=== PATIENT | male | born 1945 | race Caucasian/White ===

== ENCOUNTER 2016-12-09 14:01 | Inpatient (IN) | payer OTHER ==
[~2016-12-09] VITALS: Ht 175.3 cm; Wt 94.1 kg
[~2016-12-09 14:01] MED LIST: ALBU0.08 INH; CALC500C70 PO; CARB25TA12 PO; CHOL20007 PO; CITA10TA4 PO; DOCU100C31 PO; FINA5TAB PO; FLEC50TA20 PO; LSNP/30 PO; PRD10 PO; PRD75 PO; PRED10TA PO; TPRSR/100 PO; ZOLP5TAB PO
[2016-12-09] MEDS ORDERED: TAMS0.4C38 PO (14:38)
[2016-12-09] MEDS ORDERED: ALUMSUS2 PO (14:38)
[2016-12-09] MEDS ORDERED: POLY335019 PO (14:38)
--- NOTE | 2016-12-09 15:11 | EMERGENCY ROOM VISIT NOTE ---
History Report prepared by Lesa: Ijeoma Lange Under the Supervision of: Dr. Lester Augustin M.D. First contact with patient: 15:01 Chief Complaint: WEAKNESS Stated Complaint: WEAKNESS Nursing Triage Summary: Patient arrives via ALS from home with complaints of weakness. Patient is from home with . EMS reports temp. 98.6F, PMH of a.fib, PE, hydrocephalus. Patient denies pain, weakness noted when changing patient into gown. History of Present Illness The patient is a 71 year old male who presents to the Emergency Room with complaints of worsened weakness this morning. Per patient's family the patient is typically able to stand up on his own but he was unable to stand this morning. He was also minimally responsive and would fall back to sleep quickly. The patient had some cold-symptoms and a cough recently. His cold symptoms have improved but he does have an occasional cough. Past medical history includes hydrocephalus. The patient has been dealing with this for the past 10 years and had a shunt 1.5 years ago which they do not think was successful. Source of History: family Onset: this morning Position: other (global) Quality: other (weakness) Timing: worsening Associated Symptoms: + cough Review of Systems See HPI for pertinent positives & negatives. A total of 10 systems reviewed and were otherwise negative. 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 (4) Pulmonary emboli (5) SIRS (systemic inflammatory response syndrome) Family History Cancer Hypertension Social History Smoking Status: Never Smoker Drug Use: none Marital Status: Housing Status: lives with family Occupation Status: retired Current/Historical Medications Scheduled Calcium/Vitamin D (Os-Pankaj 500 Plus D), 1 TAB PO DAILY Carbidopa/Levodopa (Sinemet 25MG/100MG), 1 TAB PO TID Cholecalciferol (Vitamin D3), 2,000 UNIT PO HS Citalopram Hydrobromide (Citalopram Hydrobromide), 10 MG PO DAILY Dabigatran Elexilate (Pradaxa), 150 MG PO BID Docusate Sodium (Docusate Sodium), 1 CAP PO BID Finasteride (Proscar), 5 MG PO QAM Flecainide (Tambocor), 50 MG PO Q12 Lisinopril (Zestril), 30 MG PO DAILY Metoprolol Succinate (Metoprolol Succinate ER), 100 MG PO DAILY Prednisone Tab (Prednisone), 10 MG PO DAILY Tamsulosin Hcl (Flomax), 0.4 MG PO DAILY Scheduled PRN Polyethylene Glycol 3350 (Miralax), 17 GM PO DAILY PRN for Constipation Miscellaneous Medications Alum & Mag Hydrox-Simethicone (Maalox Max Susp), 30 ML PO Allergies Coded Allergies: No Known Allergies (Unverified , 12/09/16) Physical Exam Vital Signs Date Time Temp Pulse Resp B/P Pulse Ox O2 Delivery O2 Flow Rate FiO2 12/09/16 18:31 74 18 161/74 96 Room Air 12/09/16 17:15 59 20 144/72 99 Nebulizer 6.0 12/09/16 16:20 52 18 93 Room Air 12/09/16 16:08 52 20 123/71 94 60 121/71 12/09/16 16:08 94 Room Air 12/09/16 16:06 52 20 140/68 94 Room Air 12/09/16 14:52 54 12/09/16 14:34 53 18 143/60 93 Room Air 12/09/16 14:11 36.9 61 16 129/63 94 Room Air 12/09/16 14:11 94 Room Air Physical Exam GENERAL: Patient is a healthy-appearing well-nourished 71 year old male HEAD: Normocephalic atraumatic EYES: Ocular movements intact pupils equal and react to light OROPHARYNX mucous membranes are moist no exudates present no erythema or edema present NECK: Supple no nuchal rigidity CHEST: Good equal expansion LUNGS: Wheezing on the right to auscultation. CARDIAC: Normal S1 and S2 ABDOMEN: Soft nontender no guarding BACK: No CVA tenderness EXTREMITIES: No pain upon palpation normal muscle strength in all groups no clubbing cyanosis or edema NEURO: Patient is not following commands and does not know where he is. Cranial Nerves 2-12 grossly intact Medical Decision & Procedures ER Provider Diagnostic Interpretation: Radiology results as stated below per my review and radiologist interpretation: CHEST ONE VIEW PORTABLE CLINICAL HISTORY: Altered mental status. COMPARISON STUDY: Chest CT September 06, 2016. FINDINGS: A catheter overlying the right chest wall and upper abdomen is again noted. Cardiomegaly is unchanged. There is no evidence of pulmonary edema. There is no consolidation to suggest pneumonia. No pneumothorax or pleural effusion is present. Mild left basilar opacity likely reflects atelectasis and epicardial fat pad. IMPRESSION: 1. No acute findings. 2. Stable cardiomegaly without evidence of pulmonary edema. 3. Hazy left lower lung opacity likely reflects atelectasis and epicardial fat pad. Electronically signed by: Yvon Christy M.D. 12/09/2016 3:39 PM Dictated Date/Time: 12/09/2016 3:[address] ANGIOGRAM OF THE CHEST CLINICAL HISTORY: Wheezing. Dyspnea. COMPARISON STUDY: Multiple prior chest CT scans, most recently dated 09/06/2016. TECHNIQUE: Following the IV administration of 110 cc of Optiray 320, CT angiogram of the chest was performed from the upper abdomen to the thoracic inlet utilizing the pulmonary embolus protocol. Images are reviewed in the axial, sagittal, and coronal planes. 3-D MIPS images are created and assessed. IV contrast was administered without complication. The examination is significantly degraded by motion artifact as well as by streak artifact from the patient's arms which could not be elevated above the chest. CT DOSE: 1319.48 mGy.cm FINDINGS: Thyroid: Imaged portions of the thyroid gland are normal in size and attenuation. Thoracic aorta: There is mild atherosclerotic calcification of the thoracic aorta, which is normal in caliber and demonstrates standard 3-vessel arch anatomy. No dissection is seen. Pulmonary vasculature: The pulmonary trunk is normal in caliber. There are no central filling defects identified within the main or lobar pulmonary arteries to suggest pulmonary embolus. Evaluation of the peripheral vessels is severely degraded by streak and motion artifact. Heart: The heart heart is mildly enlarged and there is trace pericardial effusion. The coronary arteries are densely calcified. Lungs and pleural spaces: Evaluation of the lung parenchyma is degraded by motion artifact. There is bibasilar atelectasis. No airspace consolidation is identified typical for pneumonia and there is no pleural effusion. Biapical scarring is observed. The trachea and central airways are clear. Mediastinum: There is no mediastinal lymphadenopathy. Amrie: Clear. Axillae: There is no axillary lymphadenopathy. Upper abdomen: A ventriculostomy catheter is noted in the right upper quadrant. There is a small to moderate hiatal hernia. Cortical atrophy is noted in the partially visualized kidneys. Skeletal structures: The skeletal structures are osteopenic. No lytic or blastic bony lesions are seen. There are healed right-sided rib fractures. Arthritic changes are seen in the shoulders. Degenerative change and scoliosis are noted in the thoracic spine. A mild superior endplate compression deformity is noted in L1. IMPRESSION: 1. Significantly streak and motion artifact degraded examination. 2. There are no filling defects identified to indicate central pulmonary embolus within the main or lobar pulmonary branches. Evaluation of the peripheral vessels is markedly degraded by streak and motion artifact. 3. There is no airspace consolidation or pleural effusion. 4. Cardiomegaly. 5. Additional changes as above. Electronically signed by: Stew Philip M.D. 12/09/2016 6:28 PM Dictated Date/Time: 12/09/2016 6:[address] SCAN OF THE BRAIN WITHOUT IV CONTRAST CLINICAL HISTORY: Change in mental status. COMPARISON STUDY: Multiple prior CT scans of the brain, most recently dated 04/26/2016. TECHNIQUE: Unenhanced axial CT scan of the brain is performed from the vertex to the skull base. FINDINGS: Brain parenchyma: There is a right occipital approach ventriculostomy catheter. The tip terminates in the body of the left lateral ventricle. Ventricular caliber has not significantly changed from 04/26/2016. There is no transependymal flow of CSF. There are age-related involutional changes noting mild subcortical and periventricular microangiopathic change. There is no hemorrhage, mass effect, or evidence of acute territorial ischemia by CT criteria. Chahal-white matter is preserved. No extra-axial fluid collection is seen. Ventricles, sulci, cisterns: Prominent secondary to involutional change, with severe enlargement of the lateral and third ventricles. See above. Intracranial vasculature: There is atherosclerotic calcification of the cavernous carotid and vertebral arteries. Calvarium: There is a right occipital jessica hole. The calvarium is otherwise intact. Sinuses and mastoids: The visualized paranasal sinuses are clear. The mastoid air cells are well pneumatized. Orbits: The bony orbits are grossly intact. IMPRESSION: 1. There is no hemorrhage, mass effect, or evidence of acute territorial ischemia by CT criteria. 2. A right occipital approach ventriculostomy catheter is unchanged in position. The caliber of the ventricles has not significantly changed from 04/26/2016. Electronically signed by: Stew Philip M.D. 12/09/2016 6:21 PM Dictated Date/Time: 12/09/2016 6:18 PM Laboratory Results 12/09/16 14:20 Red Blood Count 5.17, Mean Corpuscular Volume 85.7, Mean Corpuscular Hemoglobin 30.2, Mean Corpuscular Hemoglobin Concent 35.2, Mean Platelet Volume 10.8, Neutrophils (%) (Auto) 49.9, Lymphocytes (%) (Auto) 38.5, Monocytes (%) (Auto) 10.0, Eosinophils (%) (Auto) 0.4, Basophils (%) (Auto) 0.8, Neutrophils # (Auto ) 3.63, Lymphocytes # (Auto) 2.81, Monocytes # (Auto) 0.73, Eosinophils # (Auto ) 0.03, Basophils # (Auto) 0.06 12/09/16 14:20 Test 12/09/16 14:20 12/09/16 14:28 12/09/16 16:04 12/09/16 16:15 White Blood Count 7.29 K/uL (4.8-10.8) Red Blood Count 5.17 M/uL (4.7-6.1) Hemoglobin 15.6 g/dL (14.0-18.0) Hematocrit 44.3 % (42-52) Mean Corpuscular Volume 85.7 fL (80-100) Mean Corpuscular Hemoglobin 30.2 pg (25-34) Mean Corpuscular Hemoglobin Concent 35.2 g/dl (32-36) Platelet Count 155 K/uL (130-400) Mean Platelet Volume 10.8 fL (7.4-10.4) Neutrophils (%) (Auto) 49.9 % Lymphocytes (%) (Auto) 38.5 % Monocytes (%) (Auto) 10.0 % Eosinophils (%) (Auto) 0.4 % Basophils (%) (Auto) 0.8 % Neutrophils # (Auto) 3.63 K/uL (1.4-6.5) Lymphocytes # (Auto) 2.81 K/uL (1.2-3.4) Monocytes # (Auto) 0.73 K/uL (0.11-0.59) Eosinophils # (Auto) 0.03 K/uL (0-0.5) Basophils # (Auto) 0.06 K/uL (0-0.2) RDW Standard Deviation 43.3 fL (36.4-46.3) RDW Coefficient of Variation 13.9 % (11.5-14.5) Immature Granulocyte % (Auto) 0.4 % Immature Granulocyte # (Auto) 0.03 K/uL (0.00-0.02) Anion Gap 10.0 mmol/L (3-11) Est Creatinine Clear Calc Drug Dose 59.0 ml/min Estimated GFR () 63.6 Estimated GFR (Non- 54.9 BUN/Creatinine Ratio 16.2 (10-20) Calcium Level 8.1 mg/dl (8.5-10.1) Total Bilirubin 0.7 mg/dl (0.2-1) Direct Bilirubin 0.2 mg/dl (0-0.2) Aspartate Amino Transf (AST/SGOT) 12 U/L (15-37) Alanine Aminotransferase (ALT/SGPT) 17 U/L (12-78) Alkaline Phosphatase 60 U/L (45-117) Total Creatine Kinase 67 U/L (39-308) Creatine Kinase MB 1.3 ng/ml (0.5-3.6) Creatine Kinase MB Ratio 1.9 (0-3.0) Troponin I < 0.015 ng/ml (0-0.045) Total Protein 5.9 gm/dl (6.4-8.2) Albumin 3.3 gm/dl (3.4-5.0) Thyroid Stimulating Hormone (TSH) 0.321 uIu/ml (0.300-4.500) Bedside Lactic Acid Venous 0.94 mmol/L (0.90-1.70) Bedside Glucose 85 mg/dl (70-99) Influenza Type A (RT-PCR) POS for Influ A (NEG) Influenza Type B (RT-PCR) Neg for Influ B (NEG) Test 12/09/16 18:30 Urine Color YELLOW Urine Appearance CLEAR (CLEAR) Urine pH 5.5 (4.5-7.5) Urine Specific Vale 1.037 (1.000-1.030) Urine Protein NEG (NEG) Urine Glucose (UA) NEG (NEG) Urine Ketones NEG (NEG) Urine Occult Blood TRACE (NEG) Urine Nitrite NEG (NEG) Urine Bilirubin NEG (NEG) Urine Urobilinogen NEG (NEG) Urine Leukocyte Esterase NEG (NEG) Urine WBC (Auto) 0 /hpf (0-5) Urine RBC (Auto) 10-30 /hpf (0-4) Urine Hyaline Casts (Auto) 0 /lpf (0-5) Urine Epithelial Cells (Auto) 0-5 /lpf (0-5) Urine Bacteria (Auto) NEG (NEG) Labs reviewed by ED physician. Medications Administered Medications (Trade) Dose Ordered Sig/Chetan Route Start Time Stop Time Status Last Admin Dose Admin Sodium Chloride (Nss 500ml) 500 ml @ 999 mls/hr Q31M STAT IV 12/09/16 15:18 12/09/16 15:48 DC 12/09/16 16:03 999 MLS/HR Oseltamivir Phosphate (Tamiflu Cap) 75 mg NOW STAT PO 12/09/16 17:44 12/09/16 17:45 DC 12/09/16 17:55 75 MG ECG Indication: weakness Rate (beats per minute): 55 Rhythm: sinus bradycardia Findings: no acute ischemic change, no ectopy ED Course 1504: Past medical records reviewed. The patient was evaluated in room B8. A complete history and physical examination was performed. 1515: Ordered DuoNeb 12 ml INH, NSS 500 ml @ 999 mls/hr IV. 1744: Ordered Tamiflu Cap 75 mg PO. 1827: Upon reexamination the patient is resting comfortably. I discussed results and treatment plan with the patient and his son. They verbalized agreement and understanding. 2057: I discussed the case with Dr. Hope [place] [facility] [place] The patient will be evaluated for further management. Medical Decision Differential diagnosis: Etiologies such as metabolic, infection, hypo/hyperglycemia, electrolyte abnormalities, cardiac sources, intracerebral event, toxicologic, neurologic, as well as others were entertained. This is a 71-year-old male who presents emergency department with altered mental status. The patient was given normal saline bolus in the emergency department along with an hour-long breathing treatment. The patient is not sure of where he is. He is positive for flu. The patient does have a history of CLL as well as a shunt placed. CAT scan of the head is unchanged. He has a history of pulmonary embolus however is on dabigatran. CT of the chest does not show any evidence of PE. The patient was started on Tamiflu and discussed with the hospitalist service due to his altered mental status. Both patient and family were in agreement with the treatment plan. Consults Time Called: 1827 Consulting Physician: Dr. Jayy Lopez [facility] [place] Returned Call: [phone] I discussed the case with him. The patient will be evaluated for further management. Impression Primary Impression: Altered mental status Additional Impression: Influenza A Scribe Attestation The scribe's documentation has been prepared under my direction and personally reviewed by me in its entirety. I confirm that the note above accurately reflects all work, treatment, procedures, and medical decision making performed by me. Departure Information Dispostion Being Evaluated By Hospitalist Referrals Carlos Brooks D.O.Int.Med. (PCP) Patient Instructions My [facility] Problem Qualifiers Primary Impression: Altered mental status Altered mental status type: disorientation Qualified Codes: R41.0 - Disorientation, unspecified
[2016-12-09] MEDS ORDERED: ALBUT/IPRATROP 3MG/0.5MG NEB 3 ML VIAL INH ONE (15:15)
[2016-12-09] MEDS ORDERED: SODIUM CHLORIDE 0.9% 500ML 500 ML IV STA (15:18)
[2016-12-09 15:28] LABS: BASO % 0.8 %; BASO ABS # 0.06 K/uL (0-0.2); COMPLETE YES; EOS % 0.4 %; HEMATOCRIT 44.3 % (42-52); IG% 0.4 %; LYMPH % 38.5 %; LYMPH ABS # 2.81 K/uL (1.2-3.4); MEAN CELL VOLUME 85.7 fL (80-100); MEAN CORPUSCULAR HEMOGLOBIN 30.2 pg (25-34); MEAN CORPUSCULAR HGB CONC 35.2 g/dl (32-36); MEAN PLATELET VOLUME 10.8 fL (7.4-10.4); NEUT % 49.9 %; PLATELET COUNT 155 K/uL (130-400); RED BLOOD COUNT 5.17 M/uL (4.7-6.1); WHITE BLOOD COUNT 7.29 K/uL (4.8-10.8)
[2016-12-09 15:35] LABS: ALT/SGPT 17 U/L (12-78); AST/SGOT 12 U/L (15-37); BLOOD UREA NITROGEN 21 mg/dl (7-18); BUN/CREATININE RATIO 16.2 (10-20); CALCIUM 8.1 mg/dl (8.5-10.1); CARBON DIOXIDE 25 mmol/L (21-32); CHLORIDE 106 mmol/L (98-107); GLUCOSE 86 mg/dl (70-99); POTASSIUM 4.1 mmol/L (3.5-5.1); SODIUM 141 mmol/L (136-145)
--- NOTE | 2016-12-09 15:40 | DIAGNOSTIC IMAGING REPORT ---
CHEST ONE VIEW PORTABLE CLINICAL HISTORY: Altered mental status. COMPARISON STUDY: Chest CT September 06, 2016. FINDINGS: A catheter overlying the right chest wall and upper abdomen is again noted. Cardiomegaly is unchanged. There is no evidence of pulmonary edema. There is no consolidation to suggest pneumonia. No pneumothorax or pleural effusion is present. Mild left basilar opacity likely reflects atelectasis and epicardial fat pad. IMPRESSION: 1. No acute findings. 2. Stable cardiomegaly without evidence of pulmonary edema. 3. Hazy left lower lung opacity likely reflects atelectasis and epicardial fat pad. Electronically signed by: Yvon Christy M.D. 12/09/2016 3:39 PM Dictated Date/Time: 12/09/2016 3:37 PM
[2016-12-09 15:46] LABS: ALKALINE PHOSPHATASE 60 U/L (45-117); CKMB/CK RATIO 1.9 (0-3.0); THYROID STIMULATING HORMONE 0.321 uIu/ml (0.300-4.500)
[2016-12-09] MEDS ORDERED: OPTIRAY 320 IV PRN (16:15)
[2016-12-09 16:20] VITALS: PULSE 52; O2SAT 93
[2016-12-09 17:42] LABS: INFLUENZA B PCR Neg for Influ B (NEG)
[2016-12-09 17:43] LABS: INFLUENZA A PCR POS for Influ A (NEG)
[2016-12-09] MEDS ORDERED: OSELTAMIVIR PHOSPHATE 75 MG CAP PO STA (17:44)
--- NOTE | 2016-12-09 18:22 | DIAGNOSTIC IMAGING REPORT ---
CT SCAN OF THE BRAIN WITHOUT IV CONTRAST CLINICAL HISTORY: Change in mental status. COMPARISON STUDY: Multiple prior CT scans of the brain, most recently dated 04/26/2016. TECHNIQUE: Unenhanced axial CT scan of the brain is performed from the vertex to the skull base. FINDINGS: Brain parenchyma: There is a right occipital approach ventriculostomy catheter. The tip terminates in the body of the left lateral ventricle. Ventricular caliber has not significantly changed from 04/26/2016. There is no transependymal flow of CSF. There are age-related involutional changes noting mild subcortical and periventricular microangiopathic change. There is no hemorrhage, mass effect, or evidence of acute territorial ischemia by CT criteria. Chahal-white matter is preserved. No extra-axial fluid collection is seen. Ventricles, sulci, cisterns: Prominent secondary to involutional change, with severe enlargement of the lateral and third ventricles. See above. Intracranial vasculature: There is atherosclerotic calcification of the cavernous carotid and vertebral arteries. Calvarium: There is a right occipital jessica hole. The calvarium is otherwise intact. Sinuses and mastoids: The visualized paranasal sinuses are clear. The mastoid air cells are well pneumatized. Orbits: The bony orbits are grossly intact. IMPRESSION: 1. There is no hemorrhage, mass effect, or evidence of acute territorial ischemia by CT criteria. 2. A right occipital approach ventriculostomy catheter is unchanged in position. The caliber of the ventricles has not significantly changed from 04/26/2016. Electronically signed by: Stew Philip M.D. 12/09/2016 6:21 PM Dictated Date/Time: 12/09/2016 6:18 PM
--- NOTE | 2016-12-09 18:30 | DIAGNOSTIC IMAGING REPORT ---
CT ANGIOGRAM OF THE CHEST CLINICAL HISTORY: Wheezing. Dyspnea. COMPARISON STUDY: Multiple prior chest CT scans, most recently dated 09/06/2016. TECHNIQUE: Following the IV administration of 110 cc of Optiray 320, CT angiogram of the chest was performed from the upper abdomen to the thoracic inlet utilizing the pulmonary embolus protocol. Images are reviewed in the axial, sagittal, and coronal planes. 3-D MIPS images are created and assessed. IV contrast was administered without complication. The examination is significantly degraded by motion artifact as well as by streak artifact from the patient's arms which could not be elevated above the chest. CT DOSE: 1319.48 mGy.cm FINDINGS: Thyroid: Imaged portions of the thyroid gland are normal in size and attenuation. Thoracic aorta: There is mild atherosclerotic calcification of the thoracic aorta, which is normal in caliber and demonstrates standard 3-vessel arch anatomy. No dissection is seen. Pulmonary vasculature: The pulmonary trunk is normal in caliber. There are no central filling defects identified within the main or lobar pulmonary arteries to suggest pulmonary embolus. Evaluation of the peripheral vessels is severely degraded by streak and motion artifact. Heart: The heart heart is mildly enlarged and there is trace pericardial effusion. The coronary arteries are densely calcified. Lungs and pleural spaces: Evaluation of the lung parenchyma is degraded by motion artifact. There is bibasilar atelectasis. No airspace consolidation is identified typical for pneumonia and there is no pleural effusion. Biapical scarring is observed. The trachea and central airways are clear. Mediastinum: There is no mediastinal lymphadenopathy. Marie: Clear. Axillae: There is no axillary lymphadenopathy. Upper abdomen: A ventriculostomy catheter is noted in the right upper quadrant. There is a small to moderate hiatal hernia. Cortical atrophy is noted in the partially visualized kidneys. Skeletal structures: The skeletal structures are osteopenic. No lytic or blastic bony lesions are seen. There are healed right-sided rib fractures. Arthritic changes are seen in the shoulders. Degenerative change and scoliosis are noted in the thoracic spine. A mild superior endplate compression deformity is noted in L1. IMPRESSION: 1. Significantly streak and motion artifact degraded examination. 2. There are no filling defects identified to indicate central pulmonary embolus within the main or lobar pulmonary branches. Evaluation of the peripheral vessels is markedly degraded by streak and motion artifact. 3. There is no airspace consolidation or pleural effusion. 4. Cardiomegaly. 5. Additional changes as above. Electronically signed by: Stew Philip M.D. 12/09/2016 6:28 PM Dictated Date/Time: 12/09/2016 6:21 PM
[2016-12-09 18:57] LABS: URINE APPEARANCE CLEAR (CLEAR); URINE BILIRUBIN NEG (NEG); URINE COLOR YELLOW; URINE EPITHELIAL CELL AUTO 0-5 /lpf (0-5); URINE NITRITE NEG (NEG); URINE PH 5.5 (4.5-7.5); URINE SPECIFIC GRAVITY 1.037 (1.000-1.030); UROBILINOGEN NEG (NEG)
[2016-12-09 19:01] LABS: MANUAL MICROSCOPIC REQUIRED? NO; REVIEW REQ? NO
[2016-12-09] MEDS ORDERED: ONDANSETRON INJ 2 MG/ML 2 ML VIAL IV PRN (20:30)
[2016-12-09] MEDS ORDERED: ACETAMINOPHEN 325 MG TAB PO PRN (20:30)
[2016-12-09] MEDS ORDERED: ALUMINUM/MAGNESIUM/SIMETH (MAALOX MAX) 30 ML UDC PO PRN (20:30)
[2016-12-09] MEDS ORDERED: MAGNESIUM HYDROXIDE SUSP 30 ML UDC PO PRN (20:30)
[2016-12-09] MEDS ORDERED: IV FLUIDS COMPLETED PRN (20:45)
[2016-12-09] MEDS ORDERED: POLYETHYLENE (MIRALAX) 17 GM PACK PO PRN (21:45)
[2016-12-09] MEDS ORDERED: SODIUM CHLORIDE 0.9% 1000ML 1,000 ML IV SCH (22:15)
--- NOTE | 2016-12-09 22:35 | History and Physical ---
History & Physical Date & Time of Service: Dec 09, 2016 at 22:17 Chief Complaint: Influenza A, Weakness Primary Care Physician: Carlos Brooks D.O.Int.Med. History of Present Illness Source: family This is a 71 yo m with hydrocephalus, Afibb and dementia that is presenting to us with acute changes in his cognition and weakness. According to the son over a couple of days his father seems weaker than usual. This morning he was extremely weak and unable to even get out of bed. He has also increased confusion as per the son. He was evaluated in the ED and was found to be Influenza positive. The son would prefer admission because the patient is so weak and no one will be able to care for him at home. They have home health arranged but they have not been to the house as of yet. 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 Family History Cancer Hypertension Social History Smoking Status: Never Smoker Smokeless Tobacco Use: No Alcohol Use: none Drug Use: none Marital Status: Housing status: lives with family Occupational Status: retired Immunizations History of Influenza Vaccine: Yes History of Tetanus Vaccine?: Yes History of Pneumococcal: No History of Hepatitis B Vaccine: No Allergies Coded Allergies: No Known Allergies (Unverified , 12/09/16) Home Medications Scheduled Calcium/Vitamin D (Os-Pankaj 500 Plus D), 1 TAB PO DAILY Carbidopa/Levodopa (Sinemet 25MG/100MG), 1 TAB PO TID Cholecalciferol (Vitamin D3), 2,000 UNIT PO HS Citalopram Hydrobromide (Citalopram Hydrobromide), 10 MG PO DAILY Dabigatran Elexilate (Pradaxa), 150 MG PO BID Docusate Sodium (Docusate Sodium), 1 CAP PO BID Finasteride (Proscar), 5 MG PO QAM Flecainide (Tambocor), 50 MG PO Q12 Lisinopril (Zestril), 30 MG PO DAILY Metoprolol Succinate (Metoprolol Succinate ER), 100 MG PO DAILY Prednisone Tab (Prednisone), 10 MG PO DAILY Tamsulosin Hcl (Flomax), 0.4 MG PO DAILY Scheduled PRN Polyethylene Glycol 3350 (Miralax), 17 GM PO DAILY PRN for Constipation Miscellaneous Medications Alum & Mag Hydrox-Simethicone (Maalox Max Susp), 30 ML PO Review of Systems Unable to complete because of minimal responses from patient Physical Exam Vital Signs Date Time Temp Pulse Resp B/P Pulse Ox O2 Delivery O2 Flow Rate FiO2 12/09/16 21:26 67 20 163/91 94 Room Air 12/09/16 18:31 74 18 161/74 96 Room Air 12/09/16 17:15 59 20 144/72 99 Nebulizer 6.0 12/09/16 16:20 52 18 93 Room Air 12/09/16 16:08 52 20 123/71 94 60 121/71 12/09/16 16:08 94 Room Air 12/09/16 16:06 52 20 140/68 94 Room Air 12/09/16 14:52 54 12/09/16 14:34 53 18 143/60 93 Room Air 12/09/16 14:11 36.9 61 16 129/63 94 Room Air 12/09/16 14:11 94 Room Air General Appearance: WD/WN, no apparent distress Head: normocephalic, atraumatic Eyes: normal inspection ENT: normal ENT inspection Neck: supple Respiratory/Chest: lungs clear, normal breath sounds, no respiratory distress, no accessory muscle use Cardiovascular: no murmur, + bradycardia Abdomen/GI: normal bowel sounds, non tender, soft Back: normal inspection Extremities/Musculoskelatal: no calf tenderness, + pedal edema (+ 2 bilat LE) Neurologic/Psych: alert, normal mood/affect, oriented x 3 Skin: normal color, warm/dry, no rash Lymphatic: no adenopathy Diagnostics Laboratory Results Results Past 24 Hours Test 12/09/16 14:20 12/09/16 14:28 12/09/16 16:04 12/09/16 16:15 Range/Units White Blood Count 7.29 4.8-10.8 K/uL Red Blood Count 5.17 4.7-6.1 M/uL Hemoglobin 15.6 14.0-18.0 g/dL Hematocrit 44.3 42-52 % Mean Corpuscular Volume 85.7 80-100 fL Mean Corpuscular Hemoglobin 30.2 25-34 pg Mean Corpuscular Hemoglobin Concent 35.2 32-36 g/dl Platelet Count 155 130-400 K/uL Mean Platelet Volume 10.8 7.4-10.4 fL Neutrophils (%) (Auto) 49.9 % Lymphocytes (%) (Auto) 38.5 % Monocytes (%) (Auto) 10.0 % Eosinophils (%) (Auto) 0.4 % Basophils (%) (Auto) 0.8 % Neutrophils # (Auto) 3.63 1.4-6.5 K/uL Lymphocytes # (Auto) 2.81 1.2-3.4 K/uL Monocytes # (Auto) 0.73 0.11-0.59 K/uL Eosinophils # (Auto) 0.03 0-0.5 K/uL Basophils # (Auto) 0.06 0-0.2 K/uL RDW Standard Deviation 43.3 36.4-46.3 fL RDW Coefficient of Variation 13.9 11.5-14.5 % Immature Granulocyte % (Auto) 0.4 % Immature Granulocyte # (Auto) 0.03 0.00-0.02 K/uL Sodium Level 141 136-145 mmol/L Potassium Level 4.1 3.5-5.1 mmol/L Chloride Level 106 98-107 mmol/L Carbon Dioxide Level 25 21-32 mmol/L Anion Gap 10.0 3-11 mmol/L Blood Urea Nitrogen 21 7-18 mg/dl Creatinine 1.30 0.60-1.40 mg/dl Est Creatinine Clear Calc Drug Dose 59.0 ml/min Estimated GFR () 63.6 Estimated GFR (Non- 54.9 BUN/Creatinine Ratio 16.2 10-20 Random Glucose 86 70-99 mg/dl Calcium Level 8.1 8.5-10.1 mg/dl Total Bilirubin 0.7 0.2-1 mg/dl Direct Bilirubin 0.2 0-0.2 mg/dl Aspartate Amino Transf (AST/SGOT) 12 15-37 U/L Alanine Aminotransferase (ALT/SGPT) 17 12-78 U/L Alkaline Phosphatase 60 45-117 U/L Total Creatine Kinase 67 39-308 U/L Creatine Kinase MB 1.3 0.5-3.6 ng/ml Creatine Kinase MB Ratio 1.9 0-3.0 Troponin I < 0.015 0-0.045 ng/ml Total Protein 5.9 6.4-8.2 gm/dl Albumin 3.3 3.4-5.0 gm/dl Thyroid Stimulating Hormone (TSH) 0.321 0.300-4.500 uIu/ml Bedside Lactic Acid Venous 0.94 0.90-1.70 mmol/L Bedside Glucose 85 70-99 mg/dl Influenza Type A (RT-PCR) POS for Influ A NEG Influenza Type B (RT-PCR) Neg for Influ B NEG Test 12/09/16 18:30 Range/Units Urine Color YELLOW Urine Appearance CLEAR CLEAR Urine pH 5.5 4.5-7.5 Urine Specific [place] 1.037 1.000-1.030 Urine Protein NEG NEG Urine Glucose (UA) NEG NEG Urine Ketones NEG NEG Urine Occult Blood TRACE NEG Urine Nitrite NEG NEG Urine Bilirubin NEG NEG Urine Urobilinogen NEG NEG Urine Leukocyte Esterase NEG NEG Urine WBC (Auto) 0 0-5 /hpf Urine RBC (Auto) 10-30 0-4 /hpf Urine Hyaline Casts (Auto) 0 0-5 /lpf Urine Epithelial Cells (Auto) 0-5 0-5 /lpf Urine Bacteria (Auto) NEG NEG Diagnostic Radiology CT ANGIOGRAM OF THE CHEST CLINICAL HISTORY: Wheezing. Dyspnea. COMPARISON STUDY: Multiple prior chest CT scans, most recently dated 09/06/2016. TECHNIQUE: Following the IV administration of 110 cc of Optiray 320, CT angiogram of the chest was performed from the upper abdomen to the thoracic inlet utilizing the pulmonary embolus protocol. Images are reviewed in the axial, sagittal, and coronal planes. 3-D MIPS images are created and assessed. IV contrast was administered without complication. The examination is significantly degraded by motion artifact as well as by streak artifact from the patient's arms which could not be elevated above the chest. CT DOSE: 1319.48 mGy.cm FINDINGS: Thyroid: Imaged portions of the thyroid gland are normal in size and attenuation. Thoracic aorta: There is mild atherosclerotic calcification of the thoracic aorta, which is normal in caliber and demonstrates standard 3-vessel arch anatomy. No dissection is seen. Pulmonary vasculature: The pulmonary trunk is normal in caliber. There are no central filling defects identified within the main or lobar pulmonary arteries to suggest pulmonary embolus. Evaluation of the peripheral vessels is severely degraded by streak and motion artifact. Heart: The heart heart is mildly enlarged and there is trace pericardial effusion. The coronary arteries are densely calcified. Lungs and pleural spaces: Evaluation of the lung parenchyma is degraded by motion artifact. There is bibasilar atelectasis. No airspace consolidation is identified typical for pneumonia and there is no pleural effusion. Biapical scarring is observed. The trachea and central airways are clear. Mediastinum: There is no mediastinal lymphadenopathy. Marie: Clear. Axillae: There is no axillary lymphadenopathy. Upper abdomen: A ventriculostomy catheter is noted in the right upper quadrant. There is a small to moderate hiatal hernia. Cortical atrophy is noted in the partially visualized kidneys. Skeletal structures: The skeletal structures are osteopenic. No lytic or blastic bony lesions are seen. There are healed right-sided rib fractures. Arthritic changes are seen in the shoulders. Degenerative change and scoliosis are noted in the thoracic spine. A mild superior endplate compression deformity is noted in L1. IMPRESSION: 1. Significantly streak and motion artifact degraded examination. 2. There are no filling defects identified to indicate central pulmonary embolus within the main or lobar pulmonary branches. Evaluation of the peripheral vessels is markedly degraded by streak and motion artifact. 3. There is no airspace consolidation or pleural effusion. 4. Cardiomegaly. 5. Additional changes as above. [~ rep ct add3]] CHEST ONE VIEW PORTABLE CLINICAL HISTORY: Altered mental status. COMPARISON STUDY: Chest CT September 06, 2016. FINDINGS: A catheter overlying the right chest wall and upper abdomen is again noted. Cardiomegaly is unchanged. There is no evidence of pulmonary edema. There is no consolidation to suggest pneumonia. No pneumothorax or pleural effusion is present. Mild left basilar opacity likely reflects atelectasis and epicardial fat pad. IMPRESSION: 1. No acute findings. 2. Stable cardiomegaly without evidence of pulmonary edema. 3. Hazy left lower lung opacity likely reflects atelectasis and epicardial fat pad. CT SCAN OF THE BRAIN WITHOUT IV CONTRAST CLINICAL HISTORY: Change in mental status. COMPARISON STUDY: Multiple prior CT scans of the brain, most recently dated 04/26/2016. TECHNIQUE: Unenhanced axial CT scan of the brain is performed from the vertex to the skull base. FINDINGS: Brain parenchyma: There is a right occipital approach ventriculostomy catheter. The tip terminates in the body of the left lateral ventricle. Ventricular caliber has not significantly changed from 04/26/2016. There is no transependymal flow of CSF. There are age-related involutional changes noting mild subcortical and periventricular microangiopathic change. There is no hemorrhage, mass effect, or evidence of acute territorial ischemia by CT criteria. Ch[place]al-white matter is preserved. No extra-axial fluid collection is seen. Ventricles, sulci, cisterns: Prominent secondary to involutional change, with severe enlargement of the lateral and third ventricles. See above. Intracranial vasculature: There is atherosclerotic calcification of the cavernous carotid and vertebral arteries. Calvarium: There is a right occipital jessica hole. The calvarium is otherwise intact. Sinuses and mastoids: The visualized paranasal sinuses are clear. The mastoid air cells are well pneumatized. Orbits: The bony orbits are grossly intact. IMPRESSION: 1. There is no hemorrhage, mass effect, or evidence of acute territorial ischemia by CT criteria. 2. A right occipital approach ventriculostomy catheter is unchanged in position. The caliber of the ventricles has not significantly changed from 04/26/2016. EKG bpm 55 Qtc 438 NSR lexii no ischemic changes no ectopy Impression Assessment and Plan This is a 71 yo m that is suffering from influenza cause metabolic encephalopathy and weakness. Patient has a h/o CLL and hydrocephalus and a shunt was placed however not working at this time, unchanged CT head. Metabolic Encephalopathy secondary to influenza - Med surg - Tamiflu - NSS IVF - follow CBC and BMP Parkinson's - Continue Sinemet A fibb - continue pradaxa and flecanide BPH - continue tamsulosin and finasteride Depression - continue citalopram HTN - continue lisinopril DVT Prophylaxis on Pradaxa Full Code Level of Care Med/Surg Resuscitation Status FULL RESUSCITATION VTE Prophylaxis VTE Risk Assessment Done? Y/N: Yes Risk Level: Moderate Given or contraindicated: Other Anticoagulation Social Service Consult None Apply Note Total Time: Critical Care 30 - 74 minutes Additional Copies To Carlos Brooks D.O.Int.Med. Assessment and Plan Attending Addendum: I have physically seen and examined this patient, have directed their medical care, have supervised the medical residents activities, and agree with the H&P as noted above, with the following changes: NONE The patient is awake, well-developed and adequately nourished, alert and oriented 3, normocephalic and atraumatic, lying in bed and in no acute distress. HEENT--PERRL, EOMI, mucous membranes and oropharynx dry. Neck--supple, no JVD or bruits, thyroid normal, trachea midline, no adenopathy. Heart--normal S1 and S2, no extra beats, no murmurs, rubs or gallops. Lungs--clear bilaterally with good air movement, no respiratory distress, no accessory muscle use. Abdomen--normal bowel sounds and soft, nontender and nondistended, no hernias or masses, no organomegaly. Extremities--no cyanosis, clubbing or edema. There are good distal pulses b/l. Dermatologic--normal skin turgor, normal color, warm and dry, no abnormal lymph nodes, no rash. Neurologic--cranial nerves II through XII grossly intact, motor and sensory examination normal. Rheumatologic--normal range of motion, nontender, muscles and joints. Psychiatric--normal affect. Assessment and Plan: Influenza A--admitted to the medical floor, continue Tamiflu 75 mg by mouth twice a day. Hydrate with normal saline with 20 potassium 100 ML's per hour. Atrial fibrillation--continue flecainide 50 mg by mouth every 12 hours, metoprolol succinate ER 100 mg by mouth daily, and lisinopril 30 mg by mouth daily. Pulmonary emboli--continue Pradaxa 150 mg by mouth twice a day. CLL--on prednisone 10 mg by mouth daily, may need stress dose steroids but will hold for now. BPH--continue finasteride 5 mg by mouth every morning and tamsulosin 0.4 mg by mouth at bedtime. Parkinsonism--continue carbidopa/levodopa 25/100 one by mouth 3 times a day. Depression--continue citalopram 10 mg by mouth daily.
[2016-12-10] VITALS: BP_SYST 111; BP_SYST 182; BP_DIAS 60; BP_DIAS 75; PULSE 66; PULSE 67; TEMP 36.7; TEMP 37; O2SAT 92; O2SAT 96
[2016-12-10] MEDS: NSS + 20MEQ KCL 1000ML 1,000 ML IV SCH ×2 (01:41→12:12)
[2016-12-10 03:56] VITALS: Ht 175.3 cm; Wt 94.1 kg
[2016-12-10 06:58] LABS: HEMATOCRIT 43.2 % (42-52); MEAN CELL VOLUME 86.7 fL (80-100); MEAN CORPUSCULAR HEMOGLOBIN 30.5 pg (25-34); MEAN CORPUSCULAR HGB CONC 35.2 g/dl (32-36); MEAN PLATELET VOLUME 10.4 fL (7.4-10.4); PLATELET COUNT 146 K/uL (130-400); RED BLOOD COUNT 4.98 M/uL (4.7-6.1); WHITE BLOOD COUNT 6.47 K/uL (4.8-10.8)
[2016-12-10 07:18] VITALS: BP 155/74; PULSE 62; TEMP 37; O2SAT 94
[2016-12-10 07:28] LABS: BUN/CREATININE RATIO 14.5 (10-20); CALCIUM 8.1 mg/dl (8.5-10.1); CREATININE 1.2 mg/dl (0.60-1.40)
[2016-12-10] MEDS: CARBIDOPA/LEVODOPA 25/100MG TAB PO SCH ×3 (07:48→19:38)
[2016-12-10] MEDS: FLECAINIDE ACETATE 100 MG TAB PO SCH ×2 (07:49→19:38)
[2016-12-10] MEDS: DOCUSATE SODIUM 100 MG CAP PO SCH ×2 (07:49→19:38)
[2016-12-10] MEDS: FINASTERIDE 5 MG TAB PO SCH (07:49)
[2016-12-10] MEDS: DABIGATRAN ELEXILATE 75 MG CAP PO SCH ×2 (07:50→19:37)
[2016-12-10] MEDS: CITALOPRAM 20 MG TAB PO SCH (07:50)
[2016-12-10] MEDS: LISINOPRIL 10 MG TAB PO SCH (07:51)
[2016-12-10] MEDS: CALCIUM 600MG + VIT D 400 IU TAB PO SCH (07:51)
[2016-12-10] MEDS: TAMSULOSIN HCL 0.4 MG CAP PO SCH (07:51)
[2016-12-10] MEDS: METOPROLOL SUCC 50MG EXT REL TAB PO SCH (07:51)
[2016-12-10] MEDS: OSELTAMIVIR PHOSPHATE 75 MG CAP PO SCH ×2 (07:51→19:37)
[2016-12-10] MEDS ORDERED: PNEUMOCOCCAL POLYSACCHARIDES 25 MCG/0.5 ML VIAL/SYR IM. ONE (08:00)
[2016-12-10] MEDS ORDERED: PNEUMOCOCCAL ADMINISTRATION CHARGE ONE (08:00)
[2016-12-10] MEDS ORDERED: INFLUENZA ADMINISTRATION CHARGE ONE (08:00)
[2016-12-10] MEDS ORDERED: INFLUENZA VIRUS QUAD VACCINE 0.5 ML SYR IM. ONE (08:00)
--- NOTE | 2016-12-10 14:37 | Progress Note ---
Subjective Date of Service: Dec 10, 2016. Subjective Pt evaluation today including: conversation w/ patient, conversation w/ family , physical exam, lab review, review of studies, review of inpatient medication list Pain: no pain PO Intake: adequate Voiding: no voiding problems patient feeling better this morning but still not back to baseline harsh cough, little sputum appetite better very fatigued discussed trying to go home tomorrow and he agreed Problem List Medical Problems: (1) ARF (acute renal failure) Status: Acute (2) Bilateral pulmonary embolism Status: Acute (3) Left upper lobe pneumonia Status: Acute (4) Leukocytosis Status: Acute (5) Sepsis Status: Acute Review of Systems Constitutional: + fatigue, + weakness Respiratory: + cough, + dyspnea on exertion All Other Systems: Reviewed and Negative Medications Current Inpatient Medications Medications (Trade) Dose Ordered Sig/[place] Route Start Time Stop Time Status Last Admin Dose Admin Ioversol (Optiray 320) 125 ml UD PRN IV 12/09/16 16:15 12/13/16 16:14 Acetaminophen (Tylenol Tab) 650 mg Q4H PRN PO 12/09/16 20:30 01/08/17 20:29 Al Hydrox/Mg Hydrox/Simethicone (Maalox Max Susp) 15 ml Q4H PRN PO 12/09/16 20:30 01/08/17 20:29 Magnesium Hydroxide (Milk Of Magnesia Susp) 30 ml Q6H PRN PO 12/09/16 20:30 01/08/17 20:29 Ondansetron HCl (Zofran Inj) 4 mg Q6H PRN IV 12/09/16 20:30 01/08/17 20:29 Oseltamivir Phosphate (Tamiflu Cap) 75 mg BID PO 12/10/16 08:00 12/15/16 08:59 12/10/16 07:51 75 MG Miscellaneous (Iv Fluids Completed) 1 ea PRN PRN N/A 12/09/16 20:45 12/09/17 20:44 Calcium/Vitamin D (Caltrate Plus Tab) 1 tab DAILY PO 12/10/16 08:00 01/09/17 08:59 12/10/16 07:51 1 TAB Carbidopa/Levodopa (Sinemet 25/ 100MG Tab) 1 tab TID PO 12/10/16 08:00 01/09/17 08:59 12/10/16 07:48 1 TAB Dabigatran (Pradaxa Cap) 150 mg BID PO 12/10/16 08:00 01/09/17 08:59 12/10/16 07:50 150 MG Docusate Sodium (coLACE CAP) 100 mg BID PO 12/10/16 08:00 01/09/17 08:59 12/10/16 07:49 100 MG Finasteride (Proscar Tab) 5 mg QAM PO 12/10/16 08:00 01/09/17 08:59 12/10/16 07:49 5 MG Flecainide Acetate (Tambocor Tab) 50 mg Q12 PO 12/10/16 09:00 01/09/17 08:59 12/10/16 07:49 50 MG Lisinopril (Zestril Tab) 30 mg DAILY PO 12/10/16 08:00 01/09/17 08:59 12/10/16 07:51 30 MG Prednisone (PredniSONE TAB) 10 mg DAILY PO 12/10/16 08:00 01/09/17 08:59 12/10/16 07:48 10 MG Tamsulosin HCl (Flomax Cap) 0.4 mg DAILY PO 12/10/16 08:00 01/09/17 08:59 12/10/16 07:51 0.4 MG Cholecalciferol (Vitamin D Tab) 2,000 inter.unit HS PO 12/10/16 21:00 01/09/17 20:59 Citalopram Hydrobromide (celeXA TAB) 10 mg DAILY PO 12/10/16 08:00 01/09/17 08:59 12/10/16 07:50 10 MG Metoprolol Succinate (Toprol Xl Tab) 100 mg DAILY PO 12/10/16 08:00 01/09/17 08:59 12/10/16 07:51 100 MG Polyethylene 17 gm 17 gm DAILY PRN PO 12/09/16 21:45 01/08/17 21:44 Potassium Chloride/Sodium Chloride (Nss + 20meq KCl 1000ml) 1,000 ml @ 100 mls/hr Q10H IV 12/10/16 01:30 01/09/17 01:29 12/10/16 12:12 100 MLS/HR Objective Vital Signs Date Time Temp Pulse Resp B/P Pulse Ox O2 Delivery O2 Flow Rate FiO2 12/10/16 08:00 Room Air 3.0 12/10/16 07:18 37.0 62 20 155/74 94 Room Air 12/10/16 00:00 37.0 67 22 182/75 92 Room Air 12/09/16 22:10 Room Air 12/09/16 21:26 67 20 163/91 94 Room Air 12/09/16 18:31 74 18 161/74 96 Room Air 12/09/16 17:15 59 20 144/72 99 Nebulizer 6.0 12/09/16 16:20 52 18 93 Room Air 12/09/16 16:08 52 20 123/71 94 60 121/71 12/09/16 16:08 94 Room Air 12/09/16 16:06 52 20 140/68 94 Room Air 12/09/16 14:52 54 Physical Exam General Appearance: WD/WN, no apparent distress Neck: supple, no adenopathy, no JVD, trachea midline Respiratory/Chest: chest non-tender, no respiratory distress, no accessory muscle use, + rhonchi (clear with coughing) Cardiovascular: regular rate, rhythm, no edema, no gallop, no JVD, no murmur Abdomen: normal bowel sounds, non tender, soft, no organomegaly Extremities: normal range of motion, non-tender, normal inspection, no pedal edema, no calf tenderness Neurologic/Psychiatric: 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[employer] II-XII nml as tested, no motor/sensory deficits, alert, normal mood/affect, oriented x 3 Skin: normal color, warm/dry, no rash Laboratory Results Last 24 Hours Test 12/09/16 16:04 12/09/16 16:15 12/09/16 18:30 12/10/16 06:37 Bedside Glucose 85 mg/dl Influenza Type A (RT-PCR) POS for Influ A Influenza Type B (RT-PCR) Neg for Influ B Urine Color YELLOW Urine Appearance CLEAR Urine pH 5.5 Urine Specific [place] 1.037 Urine Protein NEG Urine Glucose (UA) NEG Urine Ketones NEG Urine Occult Blood TRACE Urine Nitrite NEG Urine Bilirubin NEG Urine Urobilinogen NEG Urine Leukocyte Esterase NEG Urine WBC (Auto) 0 /hpf Urine RBC (Auto) 10-30 /hpf Urine Hyaline Casts (Auto) 0 /lpf Urine Epithelial Cells (Auto) 0-5 /lpf Urine Bacteria (Auto) NEG White Blood Count 6.47 K/uL Red Blood Count 4.98 M/uL Hemoglobin 15.2 g/dL Hematocrit 43.2 % Mean Corpuscular Volume 86.7 fL Mean Corpuscular Hemoglobin 30.5 pg Mean Corpuscular Hemoglobin Concent 35.2 g/dl RDW Standard Deviation 44.4 fL RDW Coefficient of Variation 14.0 % Platelet Count 146 K/uL Mean Platelet Volume 10.4 fL Sodium Level 140 mmol/L Potassium Level 4.0 mmol/L Chloride Level 108 mmol/L Carbon Dioxide Level 23 mmol/L Anion Gap 9.0 mmol/L Blood Urea Nitrogen 17 mg/dl Creatinine 1.20 mg/dl Est Creatinine Clear Calc Drug Dose 64.0 ml/min Estimated GFR () 70.1 Estimated GFR (Non- 60.5 BUN/Creatinine Ratio 14.5 Random Glucose 77 mg/dl Calcium Level 8.1 mg/dl Assessment and Plan This is a 71 yo m that is suffering from influenza A causing metabolic encephalopathy and weakness. Patient has a h/o CLL and hydrocephalus and a shunt was placed however not working at this time, unchanged CT head. Metabolic Encephalopathy secondary to influenza, improving - supportive care with NSS and Tamiflu, PT/OT evaluations - continue fluids today, d/c tonight - repeat labs in the AM - try to d/c to home tomorrow if stronger Parkinson's - Continue Sinemet A fibb - continue pradaxa and flecanide BPH - continue tamsulosin and finasteride Depression - continue citalopram HTN - continue lisinopril DVT Prophylaxis on Pradaxa Full Code
[2016-12-10 16:00] VITALS: BP 117/68; PULSE 53; TEMP 36.9; O2SAT 94
[2016-12-10] MEDS: CHOLECALCIFEROL 1000 INTER.UNIT TAB PO SCH (19:38)
[2016-12-11 00:02] VITALS: BP 138/83; PULSE 60; TEMP 36.8; O2SAT 92
[2016-12-11 00:04] VITALS: O2SAT 92
[2016-12-11 07:11] VITALS: BP 165/91; PULSE 57; TEMP 36.9; O2SAT 92
[2016-12-11 07:27] LABS: HEMATOCRIT 43.5 % (42-52); MEAN CORPUSCULAR HEMOGLOBIN 30.2 pg (25-34); MEAN CORPUSCULAR HGB CONC 35.2 g/dl (32-36); MEAN PLATELET VOLUME 10.3 fL (7.4-10.4); PLATELET COUNT 133 K/uL (130-400); RED BLOOD COUNT 5.06 M/uL (4.7-6.1)
[2016-12-11] MEDS: CARBIDOPA/LEVODOPA 25/100MG TAB PO SCH ×3 (07:56→20:23)
[2016-12-11] MEDS: METOPROLOL SUCC 50MG EXT REL TAB PO SCH (07:57)
[2016-12-11] MEDS: DOCUSATE SODIUM 100 MG CAP PO SCH ×2 (07:57→20:23)
[2016-12-11] MEDS: CALCIUM 600MG + VIT D 400 IU TAB PO SCH (07:57)
[2016-12-11] MEDS: DABIGATRAN ELEXILATE 75 MG CAP PO SCH ×2 (07:57→20:24)
[2016-12-11] MEDS: LISINOPRIL 10 MG TAB PO SCH (07:57)
[2016-12-11 07:58] LABS: BUN/CREATININE RATIO 13.9 (10-20); CALCIUM 8.2 mg/dl (8.5-10.1); CREATININE 1.2 mg/dl (0.60-1.40); POTASSIUM 3.8 mmol/L (3.5-5.1)
[2016-12-11] MEDS: FINASTERIDE 5 MG TAB PO SCH (07:58)
[2016-12-11] MEDS: CITALOPRAM 20 MG TAB PO SCH (07:58)
[2016-12-11] MEDS: TAMSULOSIN HCL 0.4 MG CAP PO SCH (07:58)
[2016-12-11] MEDS: FLECAINIDE ACETATE 100 MG TAB PO SCH ×2 (07:58→20:24)
[2016-12-11] MEDS: OSELTAMIVIR PHOSPHATE 75 MG CAP PO SCH ×2 (07:58→20:23)
--- NOTE | 2016-12-11 13:57 | Progress Note ---
Subjective Date of Service: Dec 11, 2016. Subjective Pt evaluation today including: conversation w/ patient, conversation w/ family , physical exam, lab review, review of inpatient medication list Pain: no pain PO Intake: adequate Voiding: no voiding problems breathing better, resting comfortably talked with son over the phone, plan for rehab, he knows that nothing happening over the weekend Problem List Medical Problems: (1) ARF (acute renal failure) Status: Acute (2) Bilateral pulmonary embolism Status: Acute (3) Left upper lobe pneumonia Status: Acute (4) Leukocytosis Status: Acute (5) Sepsis Status: Acute Review of Systems Constitutional: + fatigue, + weakness Respiratory: + cough, + shortness of breath Neurologic: + balance problems, + weakness All Other Systems: Reviewed and Negative Medications Current Inpatient Medications Medications (Trade) Dose Ordered Sig/Chetan Route Start Time Stop Time Status Last Admin Dose Admin Ioversol (Optiray 320) 125 ml UD PRN IV 12/09/16 16:15 12/13/16 16:14 Acetaminophen (Tylenol Tab) 650 mg Q4H PRN PO 12/09/16 20:30 01/08/17 20:29 Al Hydrox/Mg Hydrox/Simethicone (Maalox Max Susp) 15 ml Q4H PRN PO 12/09/16 20:30 01/08/17 20:29 Magnesium Hydroxide (Milk Of Magnesia Susp) 30 ml Q6H PRN PO 12/09/16 20:30 01/08/17 20:29 Ondansetron HCl (Zofran Inj) 4 mg Q6H PRN IV 12/09/16 20:30 01/08/17 20:29 Oseltamivir Phosphate (Tamiflu Cap) 75 mg BID PO 12/10/16 08:00 12/15/16 08:59 12/11/16 07:58 75 MG Miscellaneous (Iv Fluids Completed) 1 ea PRN PRN N/A 12/09/16 20:45 12/09/17 20:44 Calcium/Vitamin D (Caltrate Plus Tab) 1 tab DAILY PO 12/10/16 08:00 01/09/17 08:59 12/11/16 07:57 1 TAB Carbidopa/Levodopa (Sinemet 25/ 100MG Tab) 1 tab TID PO 12/10/16 08:00 01/09/17 08:59 12/11/16 07:56 1 TAB Dabigatran (Pradaxa Cap) 150 mg BID PO 12/10/16 08:00 01/09/17 08:59 12/11/16 07:57 150 MG Docusate Sodium (coLACE CAP) 100 mg BID PO 12/10/16 08:00 01/09/17 08:59 12/11/16 07:57 100 MG Finasteride (Proscar Tab) 5 mg QAM PO 12/10/16 08:00 01/09/17 08:59 12/11/16 07:58 5 MG Flecainide Acetate (Tambocor Tab) 50 mg Q12 PO 12/10/16 09:00 01/09/17 08:59 12/11/16 07:58 50 MG Lisinopril (Zestril Tab) 30 mg DAILY PO 12/10/16 08:00 01/09/17 08:59 12/11/16 07:57 30 MG Prednisone (PredniSONE TAB) 10 mg DAILY PO 12/10/16 08:00 01/09/17 08:59 12/11/16 07:59 10 MG Tamsulosin HCl (Flomax Cap) 0.4 mg DAILY PO 12/10/16 08:00 01/09/17 08:59 12/11/16 07:58 0.4 MG Cholecalciferol (Vitamin D Tab) 2,000 inter.unit HS PO 12/10/16 21:00 01/09/17 20:59 12/10/16 19:38 2,000 INTER.UNIT Citalopram Hydrobromide (celeXA TAB) 10 mg DAILY PO 12/10/16 08:00 01/09/17 08:59 12/11/16 07:58 10 MG Metoprolol Succinate (Toprol Xl Tab) 100 mg DAILY PO 12/10/16 08:00 01/09/17 08:59 12/11/16 07:57 100 MG Polyethylene (Miralax Powder Packet) 17 gm DAILY PRN PO 12/09/16 21:45 01/08/17 21:44 Objective Vital Signs Date Time Temp Pulse Resp B/P Pulse Ox O2 Delivery O2 Flow Rate FiO2 12/11/16 08:00 Room Air 12/11/16 07:11 36.9 57 18 165/91 92 Room Air 12/11/16 00:04 92 Room Air 12/11/16 00:02 36.8 60 20 138/83 92 Room Air 12/10/16 19:51 Room Air 12/10/16 16:00 Room Air 3.0 12/10/16 16:00 36.9 53 18 117/68 94 Room Air Physical Exam General Appearance: WD/WN, no apparent distress Eyes: normal inspection, EOMI, sclerae normal ENT: normal ENT inspection, hearing grossly normal, pharynx normal Neck: supple, no adenopathy, no JVD, trachea midline Respiratory/Chest: chest non-tender, no respiratory distress, no accessory muscle use, + rhonchi, + wheezing Cardiovascular: regular rate, rhythm, no edema, no gallop, no JVD, no murmur Abdomen: normal bowel sounds, non tender, soft, no organomegaly Extremities: normal range of motion, non-tender, normal inspection, no pedal edema, no calf tenderness Neurologic/Psychiatric: bar examiner II-XII nml as tested, no motor/sensory deficits, alert, + depressed affect, + disoriented Skin: normal color, warm/dry, no rash Lymphatic: no adenopathy Laboratory Results Last 24 Hours Test 12/11/16 07:05 White Blood Count 7.40 K/uL Red Blood Count 5.06 M/uL Hemoglobin 15.3 g/dL Hematocrit 43.5 % Mean Corpuscular Volume 86.0 fL Mean Corpuscular Hemoglobin 30.2 pg Mean Corpuscular Hemoglobin Concent 35.2 g/dl RDW Standard Deviation 43.7 fL RDW Coefficient of Variation 13.9 % Platelet Count 133 K/uL Mean Platelet Volume 10.3 fL Sodium Level 141 mmol/L Potassium Level 3.8 mmol/L Chloride Level 109 mmol/L Carbon Dioxide Level 23 mmol/L Anion Gap 9.0 mmol/L Blood Urea Nitrogen 17 mg/dl Creatinine 1.20 mg/dl Est Creatinine Clear Calc Drug Dose 64.0 ml/min Estimated GFR () 70.1 Estimated GFR (Non- 60.5 BUN/Creatinine Ratio 13.9 Random Glucose 74 mg/dl Calcium Level 8.2 mg/dl Assessment and Plan This is a 71 yo m that is suffering from influenza A causing metabolic encephalopathy and weakness. Patient has a h/o CLL and hydrocephalus and a shunt was placed however not working at this time, unchanged CT head. Metabolic Encephalopathy secondary to influenza, resolved - supportive care with NSS and Tamiflu, PT/OT evaluations - fluids stopped - CBC and BMP normal, no need for repeat labs - son would like patient to go to rehab, CM working on referral, will be here over the weekend Parkinson's - Continue Sinemet A fib - continue pradaxa and flecanide BPH - continue tamsulosin and finasteride Depression - continue citalopram HTN - continue lisinopril DVT Prophylaxis on Pradaxa Full Code
[2016-12-11 14:34] VITALS: BP 135/84; PULSE 54; TEMP 36.7; O2SAT 94
[2016-12-11] MEDS: CHOLECALCIFEROL 1000 INTER.UNIT TAB PO SCH (20:23)
[2016-12-12 00:10] VITALS: BP 157/86; PULSE 53; TEMP 36.4; O2SAT 95
[2016-12-12 07:38] LABS: HEMATOCRIT 42.9 % (42-52); MEAN CELL VOLUME 85.3 fL (80-100); MEAN CORPUSCULAR HEMOGLOBIN 30.4 pg (25-34); MEAN CORPUSCULAR HGB CONC 35.7 g/dl (32-36); MEAN PLATELET VOLUME 10.4 fL (7.4-10.4); PLATELET COUNT 131 K/uL (130-400); RED BLOOD COUNT 5.03 M/uL (4.7-6.1); WHITE BLOOD COUNT 6.96 K/uL (4.8-10.8)
[2016-12-12 08:04] LABS: BUN/CREATININE RATIO 14.2 (10-20); CALCIUM 8.1 mg/dl (8.5-10.1); CREATININE 1.1 mg/dl (0.60-1.40); POTASSIUM 3.6 mmol/L (3.5-5.1)
[2016-12-12 08:14] VITALS: BP 154/86; PULSE 57; TEMP 36.3; O2SAT 94
[2016-12-12] MEDS: DOCUSATE SODIUM 100 MG CAP PO SCH ×2 (08:14→19:41)
[2016-12-12] MEDS: LISINOPRIL 10 MG TAB PO SCH (08:14)
[2016-12-12] MEDS: DABIGATRAN ELEXILATE 75 MG CAP PO SCH ×2 (08:14→19:42)
[2016-12-12] MEDS: CARBIDOPA/LEVODOPA 25/100MG TAB PO SCH ×3 (08:15→19:41)
[2016-12-12] MEDS: FLECAINIDE ACETATE 100 MG TAB PO SCH ×2 (08:15→19:41)
[2016-12-12] MEDS: CALCIUM 600MG + VIT D 400 IU TAB PO SCH (08:15)
[2016-12-12] MEDS: OSELTAMIVIR PHOSPHATE 75 MG CAP PO SCH ×2 (08:15→19:41)
[2016-12-12] MEDS: TAMSULOSIN HCL 0.4 MG CAP PO SCH (08:15)
[2016-12-12] MEDS: FINASTERIDE 5 MG TAB PO SCH (08:15)
[2016-12-12] MEDS: CITALOPRAM 20 MG TAB PO SCH (08:16)
[2016-12-12] MEDS: METOPROLOL SUCC 50MG EXT REL TAB PO SCH (08:16)
--- NOTE | 2016-12-12 15:12 | Progress Note ---
Subjective Date of Service: Dec 12, 2016. Subjective Pt evaluation today including: conversation w/ patient, physical exam, review of inpatient medication list Pain: no pain PO Intake: adequate Voiding: no voiding problems no new issues, feeling slightly better, awaiting placement in rehab Problem List Medical Problems: (1) ARF (acute renal failure) Status: Acute (2) Bilateral pulmonary embolism Status: Acute (3) Left upper lobe pneumonia Status: Acute (4) Leukocytosis Status: Acute (5) Sepsis Status: Acute Review of Systems Constitutional: + fatigue, + weakness Respiratory: + cough, + dyspnea on exertion All Other Systems: Reviewed and Negative Medications Current Inpatient Medications Medications (Trade) Dose Ordered Sig/Chetan Route Start Time Stop Time Status Last Admin Dose Admin Ioversol (Optiray 320) 125 ml UD PRN IV 12/09/16 16:15 12/13/16 16:14 Acetaminophen (Tylenol Tab) 650 mg Q4H PRN PO 12/09/16 20:30 01/08/17 20:29 Al Hydrox/Mg Hydrox/Simethicone (Maalox Max Susp) 15 ml Q4H PRN PO 12/09/16 20:30 01/08/17 20:29 Magnesium Hydroxide (Milk Of Magnesia Susp) 30 ml Q6H PRN PO 12/09/16 20:30 01/08/17 20:29 Ondansetron HCl (Zofran Inj) 4 mg Q6H PRN IV 12/09/16 20:30 01/08/17 20:29 Oseltamivir Phosphate (Tamiflu Cap) 75 mg BID PO 12/10/16 08:00 12/15/16 08:59 12/12/16 08:15 75 MG Miscellaneous (Iv Fluids Completed) 1 ea PRN PRN N/A 12/09/16 20:45 12/09/17 20:44 Calcium/Vitamin D (Caltrate Plus Tab) 1 tab DAILY PO 12/10/16 08:00 01/09/17 08:59 12/12/16 08:15 1 TAB Carbidopa/Levodopa (Sinemet 25/ 100MG Tab) 1 tab TID PO 12/10/16 08:00 01/09/17 08:59 12/12/16 08:15 1 TAB Dabigatran (Pradaxa Cap) 150 mg BID PO 12/10/16 08:00 01/09/17 08:59 12/12/16 08:14 150 MG Docusate Sodium (coLACE CAP) 100 mg BID PO 12/10/16 08:00 01/09/17 08:59 12/12/16 08:14 100 MG Finasteride (Proscar Tab) 5 mg QAM PO 12/10/16 08:00 01/09/17 08:59 12/12/16 08:15 5 MG Flecainide Acetate (Tambocor Tab) 50 mg Q12 PO 12/10/16 09:00 01/09/17 08:59 12/12/16 08:15 50 MG Lisinopril (Zestril Tab) 30 mg DAILY PO 12/10/16 08:00 01/09/17 08:59 12/12/16 08:14 30 MG Prednisone (PredniSONE TAB) 10 mg DAILY PO 12/10/16 08:00 01/09/17 08:59 12/12/16 08:16 10 MG Tamsulosin HCl (Flomax Cap) 0.4 mg DAILY PO 12/10/16 08:00 01/09/17 08:59 12/12/16 08:15 0.4 MG Cholecalciferol (Vitamin D Tab) 2,000 inter.unit HS PO 12/10/16 21:00 01/09/17 20:59 12/11/16 20:23 2,000 INTER.UNIT Citalopram Hydrobromide (celeXA TAB) 10 mg DAILY PO 12/10/16 08:00 01/09/17 08:59 12/12/16 08:16 10 MG Metoprolol Succinate (Toprol Xl Tab) 100 mg DAILY PO 12/10/16 08:00 01/09/17 08:59 12/12/16 08:16 100 MG Polyethylene (Miralax Powder Packet) 17 gm DAILY PRN PO 12/09/16 21:45 01/08/17 21:44 Objective Vital Signs Date Time Temp Pulse Resp B/P Pulse Ox O2 Delivery O2 Flow Rate FiO2 12/12/16 08:14 36.3 57 18 154/86 94 Room Air 12/12/16 08:00 Room Air 12/12/16 00:30 Room Air 12/12/16 00:10 36.4 53 20 157/86 95 Room Air 12/11/16 20:00 Room Air 12/11/16 16:00 Room Air Physical Exam General Appearance: WD/WN, no apparent distress Neck: supple, no adenopathy, no JVD, trachea midline Respiratory/Chest: chest non-tender, no respiratory distress, no accessory muscle use, + rhonchi (scattered) Cardiovascular: regular rate, rhythm, no edema, no gallop, no JVD, no murmur Abdomen: normal bowel sounds, non tender, soft, no organomegaly Extremities: normal range of motion, non-tender, normal inspection, no pedal edema, no calf tenderness Neurologic/Psychiatric: director intelligence analysis programs II-XII nml as tested, alert, + motor weakness, + depressed affect, + disoriented Skin: normal color, warm/dry, no rash Laboratory Results Last 24 Hours Test 12/12/16 07:13 White Blood Count 6.96 K/uL Red Blood Count 5.03 M/uL Hemoglobin 15.3 g/dL Hematocrit 42.9 % Mean Corpuscular Volume 85.3 fL Mean Corpuscular Hemoglobin 30.4 pg Mean Corpuscular Hemoglobin Concent 35.7 g/dl RDW Standard Deviation 42.3 fL RDW Coefficient of Variation 13.6 % Platelet Count 131 K/uL Mean Platelet Volume 10.4 fL Sodium Level 143 mmol/L Potassium Level 3.6 mmol/L Chloride Level 109 mmol/L Carbon Dioxide Level 24 mmol/L Anion Gap 10.0 mmol/L Blood Urea Nitrogen 16 mg/dl Creatinine 1.10 mg/dl Est Creatinine Clear Calc Drug Dose 69.8 ml/min Estimated GFR () 77.9 Estimated GFR (Non- 67.2 BUN/Creatinine Ratio 14.2 Random Glucose 76 mg/dl Calcium Level 8.1 mg/dl Assessment and Plan This is a 71 yo m that is suffering from influenza A causing metabolic encephalopathy and weakness. Patient has a h/o CLL and hydrocephalus and a shunt was placed however not working at this time, unchanged CT head. Metabolic Encephalopathy secondary to influenza, resolved - supportive care with NSS and Tamiflu (day 3), PT/OT evaluations - fluids stopped - CBC and BMP normal, no need for repeat labs - son would like patient to go to rehab, CM working on referral, will be here over the weekend - complete 2 more days of Tamiflu Parkinson's - Continue Sinemet A fib - continue pradaxa and flecanide BPH - continue tamsulosin and finasteride Depression - continue citalopram HTN - continue lisinopril DVT Prophylaxis on Pradaxa Full Code Plan: awaiting placement in rehab, check with CM tomorrow
[2016-12-12 16:26] VITALS: BP 148/86; PULSE 55; TEMP 36.6; O2SAT 93
[2016-12-12] MEDS: CHOLECALCIFEROL 1000 INTER.UNIT TAB PO SCH (19:42)
[2016-12-12 23:58] VITALS: BP 154/83; PULSE 51; TEMP 36.7; O2SAT 94
[2016-12-13 07:36] VITALS: BP 142/75; PULSE 50; TEMP 36.7; O2SAT 93
[2016-12-13 08:00] VITALS: O2SAT 93
[2016-12-13] MEDS: METOPROLOL SUCC 50MG EXT REL TAB PO SCH (08:00)
[2016-12-13] MEDS: FLECAINIDE ACETATE 100 MG TAB PO SCH ×2 (09:00→20:30)
[2016-12-13] MEDS: TAMSULOSIN HCL 0.4 MG CAP PO SCH (09:01)
[2016-12-13] MEDS: CALCIUM 600MG + VIT D 400 IU TAB PO SCH (09:01)
[2016-12-13] MEDS: CARBIDOPA/LEVODOPA 25/100MG TAB PO SCH ×3 (09:01→20:33)
[2016-12-13] MEDS: CITALOPRAM 20 MG TAB PO SCH (09:02)
[2016-12-13] MEDS: LISINOPRIL 10 MG TAB PO SCH (09:03)
[2016-12-13] MEDS: FINASTERIDE 5 MG TAB PO SCH (09:03)
[2016-12-13] MEDS: DABIGATRAN ELEXILATE 75 MG CAP PO SCH ×2 (09:05→20:33)
[2016-12-13] MEDS: OSELTAMIVIR PHOSPHATE 75 MG CAP PO SCH ×2 (09:05→20:32)
[2016-12-13] MEDS: DOCUSATE SODIUM 100 MG CAP PO SCH ×2 (09:08→20:26)
--- NOTE | 2016-12-13 10:26 | Progress Note ---
Subjective Date of Service: Dec 13, 2016. Subjective Pt evaluation today including: conversation w/ patient, physical exam, chart review, lab review, review of studies, conversation w/ senior sustainability consultant, review of inpatient medication list Voiding: no voiding problems Doing okay, mild cough, mild sore throat, no difficulty breathing, no sputum, still reports generalized weakness and tired Problem List Medical Problems: (1) ARF (acute renal failure) Status: Acute (2) Bilateral pulmonary embolism Status: Acute (3) Left upper lobe pneumonia Status: Acute (4) Leukocytosis Status: Acute (5) Sepsis Status: Acute Review of Systems Constitutional: No chills, No fatigue, No fever, No problem reported, No sweats , No weakness, No weight loss Eyes: No diplopia, No discharge, No eye pain, No redness, No worsening of vision ENT: No dental problems, No hearing loss, No nasal symptoms, No sore throat, No tinnitus, No trouble swallowing, No unusual epistaxis Respiratory: + see HPI Cardiac: No PND, No chest pain, No claudication, No edema, No orthopnea, No palpitations Abdomen: No constipation, No diarrhea, No nausea, No pain, No vomiting Musculoskeletal: No calf pain, No joint pain, No muscle pain, No swelling Male : No dysuria, No hematuria, No incontinence, No nocturia more than once/ night, No slowing stream, No urinary frequency Neurologic: No balance problems, No memory loss, No numbness/tingling, No paralysis, No vertigo, No weakness Psychiatric: No anhedonism, No anxiety, No depression symptoms, No insomnia, No substance abuse Heme: No abnormal bleeding/bruising, No clotting problems, No night sweats, No swollen lymph nodes Endo: No excessive thirst, No excessive urination, No fatigue Skin: No bleeding, No color change, No itch, No new/changing skin lesions, No rash Objective Vital Signs Date Time Temp Pulse Resp B/P Pulse Ox O2 Delivery O2 Flow Rate FiO2 12/13/16 08:00 93 Room Air 12/13/16 07:36 36.7 50 20 142/75 93 Room Air 12/13/16 00:09 Room Air 12/12/16 23:58 36.7 51 18 154/83 94 Room Air 12/12/16 20:35 Room Air 12/12/16 16:26 36.6 55 15 148/86 93 Room Air 12/12/16 15:40 Room Air Physical Exam General Appearance: WD/WN, no apparent distress Eyes: normal inspection, PERRL, EOMI, sclerae normal ENT: normal ENT inspection, hearing grossly normal, pharynx normal Neck: supple, no adenopathy, thyroid normal, no JVD, no carotid bruits, trachea midline Respiratory/Chest: chest non-tender, lungs clear, normal breath sounds, no respiratory distress, no accessory muscle use, + decreased breath sounds Cardiovascular: regular rate, rhythm, no edema, no gallop, no JVD, no murmur Abdomen: normal bowel sounds, non tender, soft, no organomegaly, no pulsatile mass Extremities: normal range of motion, non-tender, normal inspection, no pedal edema, no calf tenderness, normal capillary refill, pelvis stable Neurologic/Psychiatric: armature winder II-XII nml as tested, no motor/sensory deficits, alert, normal mood/affect, oriented x 3 Skin: normal color, warm/dry, no rash Lymphatic: no adenopathy Assessment and Plan his is a 71 yo m that is suffering from influenza A causing metabolic encephalopathy and weakness. Was admitted on 12/09/2016 Continue to stable and improving Patient has a h/o CLL and hydrocephalus and a shunt was placed however not working at this time, unchanged CT head. Metabolic Encephalopathy secondary to influenza, resolving - supportive care with NSS and Tamiflu (day 4), PT/OT evaluations - fluids stopped - CBC and BMP normal, no need for repeat labs - son would like patient to go to rehab, CM working on referral, will be here over the weekend - complete 21 more days of Tamiflu Parkinson's , stable - Continue Sinemet A fib, stable - continue pradaxa and flecanide BPH , stable - continue tamsulosin and finasteride Depression - continue citalopram HTN - continue lisinopril DVT Prophylaxis on Pradaxa Full Code Plan: awaiting placement in rehab, decorticated ready to discharge, has notified casey saw operator Continued [facility] stay due to: home environment unsafe for pt Discharge planning: home
[2016-12-13 15:02] VITALS: BP 129/77; PULSE 52; TEMP 36.6; O2SAT 94
[2016-12-13 20:29] VITALS: PULSE 62
[2016-12-13] MEDS: CHOLECALCIFEROL 1000 INTER.UNIT TAB PO SCH (20:32)
[2016-12-13 23:53] VITALS: BP 144/83; PULSE 52; TEMP 36.6; O2SAT 94
[2016-12-14 07:43] VITALS: BP 128/78; PULSE 64; TEMP 36.7; O2SAT 95
[2016-12-14 07:55] VITALS: O2SAT 95
[2016-12-14] MEDS: CARBIDOPA/LEVODOPA 25/100MG TAB PO SCH ×2 (08:19→13:33)
[2016-12-14] MEDS: OSELTAMIVIR PHOSPHATE 75 MG CAP PO SCH (08:19)
[2016-12-14] MEDS: DOCUSATE SODIUM 100 MG CAP PO SCH (08:20)
[2016-12-14] MEDS: CITALOPRAM 20 MG TAB PO SCH (08:20)
[2016-12-14] MEDS: CALCIUM 600MG + VIT D 400 IU TAB PO SCH (08:20)
[2016-12-14] MEDS: METOPROLOL SUCC 50MG EXT REL TAB PO SCH (08:20)
[2016-12-14] MEDS: FLECAINIDE ACETATE 100 MG TAB PO SCH (08:20)
[2016-12-14] MEDS: LISINOPRIL 10 MG TAB PO SCH (08:20)
[2016-12-14] MEDS: FINASTERIDE 5 MG TAB PO SCH (08:20)
[2016-12-14] MEDS: TAMSULOSIN HCL 0.4 MG CAP PO SCH (08:21)
[2016-12-14] MEDS: DABIGATRAN ELEXILATE 75 MG CAP PO SCH (08:21)
[2016-12-14] MEDS ORDERED: TMF75 PO (09:08)
--- NOTE | 2016-12-14 09:11 | Progress Note ---
Subjective Date of Service: Dec 14, 2016. Subjective Pt evaluation today including: conversation w/ patient, physical exam, chart review, lab review, review of studies, review of inpatient medication list doing well, the same, no c/o, has bm, and has no voiding problem Problem List Medical Problems: (1) ARF (acute renal failure) Status: Acute (2) Bilateral pulmonary embolism Status: Acute (3) Left upper lobe pneumonia Status: Acute (4) Leukocytosis Status: Acute (5) Sepsis Status: Acute Review of Systems Constitutional: + fatigue, + weakness, No chills, No fever, No problem reported , No sweats, No weight loss Eyes: No diplopia, No discharge, No eye pain, No redness, No worsening of vision ENT: No dental problems, No hearing loss, No nasal symptoms, No sore throat, No tinnitus, No trouble swallowing, No unusual epistaxis Respiratory: + cough, No dyspnea at rest, No dyspnea on exertion, No hemoptysis , No shortness of breath, No sputum, No wheezing Cardiac: No PND, No chest pain, No claudication, No edema, No orthopnea, No palpitations Abdomen: No constipation, No diarrhea, No nausea, No pain, No vomiting Musculoskeletal: No calf pain, No joint pain, No muscle pain, No swelling Male : No dysuria, No hematuria, No incontinence, No nocturia more than once/ night, No slowing stream, No urinary frequency Neurologic: No balance problems, No memory loss, No numbness/tingling, No paralysis, No vertigo, No weakness Psychiatric: No anhedonism, No anxiety, No depression symptoms, No insomnia, No substance abuse Heme: No abnormal bleeding/bruising, No clotting problems, No night sweats, No swollen lymph nodes Endo: No excessive thirst, No excessive urination, No fatigue Skin: No bleeding, No color change, No itch, No new/changing skin lesions, No rash Objective Vital Signs Date Time Temp Pulse Resp B/P Pulse Ox O2 Delivery O2 Flow Rate FiO2 12/14/16 07:55 95 Room Air 12/14/16 07:43 36.7 64 20 128/78 95 Room Air 12/14/16 00:00 Room Air 12/13/16 23:53 36.6 52 20 144/83 94 Room Air 12/13/16 20:29 62 12/13/16 18:43 Room Air 12/13/16 15:02 36.6 52 18 129/77 94 Room Air Physical Exam General Appearance: WD/WN, no apparent distress Eyes: normal inspection, PERRL, EOMI, sclerae normal ENT: normal ENT inspection, hearing grossly normal, pharynx normal Neck: supple, no adenopathy, thyroid normal, no JVD, no carotid bruits, trachea midline Respiratory/Chest: chest non-tender, normal breath sounds, no respiratory distress, no accessory muscle use, + decreased breath sounds Cardiovascular: regular rate, rhythm, no edema, no gallop, no JVD, no murmur Abdomen: normal bowel sounds, non tender, soft, no organomegaly, no pulsatile mass Extremities: normal range of motion, non-tender, normal inspection, no pedal edema, no calf tenderness, normal capillary refill, pelvis stable Neurologic/Psychiatric: chief school finance officer II-XII nml as tested, no motor/sensory deficits, alert, normal mood/affect, oriented x 3 Skin: normal color, warm/dry, no rash Lymphatic: no adenopathy Assessment and Plan 71 yo m that is suffering from influenza A causing metabolic encephalopathy and weakness. Was admitted on 12/09/2016 Continue to stable and improving Metabolic Encephalopathy secondary to influenza, resolved - supportive care with NSS and Tamiflu (day 5), PT/OT evaluations, plan rehab or ecf - fluids stopped - CBC and BMP normal, no need for repeat labs - son would like patient to go to rehab, CM working on referral, will be here over the weekend - complete 1 more days of Tamiflu Parkinson's , stable - Continue Sinemet A fib, stable - continue pradaxa and flecanide BPH , stable - continue tamsulosin and finasteride Depression - continue citalopram HTN - continue lisinopril DVT Prophylaxis on Pradaxa Full Code Plan: awaiting placement in rehab or ecf, Continued [facility] stay due to: home environment unsafe for pt Discharge planning: home
--- NOTE | 2016-12-14 11:31 | Discharge Instructions ---
Discharge Instructions Admission Reason for Admission: Influenza A, Weakness Discharge Discharge Diagnosis / Problem: influenza A and metabolic encephalopathy Discharge Goals Goal(s): Decrease discomfort, Improve function, Increase independence, Improve disease control, Improve nutritional status, Learn about illness, Diagnostic testing, Therapeutic intervention, Prevent Disease Progression, Specific goals Activity Recommendations Activity Level: Up Ad Fartun Therapies: Physical Therapy, Occupational Therapy Exercise/Sports Limitations: none Shower/Bathe: no limitations . Additional Information Patient informed of condition: Yes Advance Directives: Yes DNR: No Level of Care: Acute Rehab Communicable Disease: No Prognosis: Other (guarded) Instructions / Follow-Up Instructions / Follow-Up you have influenza A causing metabolic encephalopathy and weakness. your tamiflu medicine need to get last dose in pm today, - you need to follow up with your primary care physician in 1 week, - take medication as instructed, never overdose or any misuse, or take with alcohol, because misuse of medicine may cause organ damage or , call your primary care physician if have questions of medicaitons. - call your primary care physician OR go to local emergency room if has any fever/chill, chest pain, shortness of breathing, nausea/vomiting/abdominal pain , facial droop/slurry speech/local weakness, or if has any questions. - fall precaution - diet as instructed - you should understand that it is important to follow up the above instruction , and "not following the above instruction" may cause delayed or missed care of your medical conditions which may cause permanent organ damage and even . Current Hospital Diet Patient's current hospital diet: Regular Diet Discharge Diet Recommended Diet: Regular Diet Pending Studies Studies pending at discharge: no Physician Orders On Transfer POLST Discussion: without POLST completion Medical Emergencies . Who to Call and When: Medical Emergencies: If at any time you feel your situation is an emergency, please call 911 immediately. . Non-Emergent Contact Non-Emergency issues call your: Primary Care Provider Call Non-Emergent contact if: you have a fever . . "Provider Documentation" section prepared by Anant Zuniga. Core Measure Problem Core Measures: None
[2016-12-14 11:32] VITALS: BP 128/78; PULSE 64; TEMP 36.7; O2SAT 95
--- NOTE | 2016-12-14 11:40 | Discharge Summary ---
Discharge Summary Admission Date: Dec 10, 2016 at 09:53 Discharge Date: Dec 14, 2016 Discharge Disposition: Rehab Principal Diagnosis: influenza A Problems/Secondary Diagnoses: influenza A causing metabolic encephalopathy Immunizations: Have You Had Influenza Vaccine: Yes History of Tetanus Vaccine?: Yes History of Pneumococcal: No History of Hepatitis B Vaccine: No Procedures: No Consultations: No Medication Reconciliation New Medications: Oseltamivir Phosphate (Tamiflu) 75 Mg Cap 75 MG PO BID for 1 Day, CAP Continued Medications: Alum & Mag Hydrox-Simethicone (Maalox Max Susp) 1 Cydney Cydney 30 ML PO Calcium/Vitamin D (Os-Pankaj 500 Plus D) Tab 1 TAB PO DAILY, TAB Carbidopa/Levodopa (Sinemet 25MG/100MG) Tab 1 TAB PO TID, #90 TAB Cholecalciferol (Vitamin D3) 2,000 Unit Tab 2000 UNIT PO HS, 5 Refills Citalopram Hydrobromide (Citalopram Hydrobromide) 10 Mg Tab 10 MG PO DAILY Dabigatran Elexilate (Pradaxa) 75 Mg Cap 150 MG PO BID for 30 Days, #120 CAP Docusate Sodium (Docusate Sodium) 100 Mg Cap 1 CAP PO BID, CAP Finasteride (Proscar) 5 Mg Tab 5 MG PO QAM, TAB Flecainide (Tambocor) 50 Mg Tab 50 MG PO Q12, TAB Lisinopril (Zestril) 30 Mg Tab 30 MG PO DAILY Metoprolol Succinate (Metoprolol Succinate ER) 100 Mg Tabcr 100 MG PO DAILY Polyethylene Glycol 3350 (Miralax) 1 Pow Pow 17 GM PO DAILY PRN for Constipation, #255 GM Prednisone Tab (Prednisone) 10 Mg Tab 10 MG PO DAILY, TAB Tamsulosin Hcl (Flomax) 0.4 Mg Cap 0.4 MG PO DAILY, CAP Discharge Exam See today's progress note Review of Systems: Constitutional: + problem reported (See today's progress note) Physical Exam: General Appearance: + pertinent finding (See today's progress note) Hospital Course 71 yo m that is suffering from influenza A causing metabolic encephalopathy and weakness. Was admitted on 12/09/2016 Continue to stable and improving Metabolic Encephalopathy secondary to influenza, resolved - supportive care with NSS and Tamiflu (day 5), PT/OT evaluations, plan rehab or ecf - fluids stopped - CBC and BMP normal, no need for repeat labs - son would like patient to go to rehab, CM working on referral, will be here over the weekend - complete 1 more days of Tamiflu, last dose will be today Parkinson's , stable - Continue Sinemet A fib, stable - continue pradaxa and flecanide BPH , stable - continue tamsulosin and finasteride Depression - continue citalopram HTN - continue lisinopril DVT Prophylaxis on Pradaxa Full Code Plan: awaiting placement in rehab his it investment/portfolio manager me there is bed to go Instructions / Follow-Up you have influenza A causing metabolic encephalopathy and weakness. your tamiflu medicine need to get last dose in pm today, - you need to follow up with your primary care physician in 1 week, - take medication as instructed, never overdose or any misuse, or take with alcohol, because misuse of medicine may cause organ damage or , call your primary care physician if have questions of medicaitons. - call your primary care physician OR go to local emergency room if has any fever/chill, chest pain, shortness of breathing, nausea/vomiting/abdominal pain , facial droop/slurry speech/local weakness, or if has any questions. - fall precaution - diet as instructed - you should understand that it is important to follow up the above instruction , and "not following the above instruction" may cause delayed or missed care of your medical conditions which may cause permanent organ damage and even . Total Time Spent: Greater than 30 minutes This includes examination of the patient, discharge planning, medication reconciliation, and communication with other providers. Discharge Instructions Please refer to the electronic Patient Visit Report (Discharge Instructions) for additional information. Additional Copies To Carlos Brooks D.O.Int[facility]Med.
[2016-12-30] MEDS ORDERED: ACET500T57 PO ×2 (14:55)
[2016-12-30] MEDS ORDERED: PANT1TAB48 PO (14:55)
[2016-12-30] MEDS ORDERED: SENN-65 PO (14:59)
[2016-12-30] MEDS ORDERED: CHOL2000 PO (14:59)
[2017-01-07] MEDS ORDERED: CHOL20009 PO (09:02)
[2017-01-07] MEDS ORDERED: TAMS0.4C38 PO (09:02)
[2017-01-07] MEDS ORDERED: DOCU100C31 PO (09:02)
[2017-01-07] MEDS ORDERED: PRED-301 PO (09:02)
[2017-01-07] MEDS ORDERED: ACET-1311 PO (09:02)
[2017-01-07] MEDS ORDERED: FINA5TAB PO (09:02)
[2017-01-07] MEDS ORDERED: METO1TAB69 PO (09:02)
[2017-01-07] MEDS ORDERED: LISI-526 PO (09:02)
[2017-01-07] MEDS ORDERED: FLEC50TA20 PO (09:02)
[2017-01-07] MEDS ORDERED: DABI1CAP PO (09:02)
== END 2016-12-14 17:00 | DRG 152 ==
LOC: ENRESERVTM → ENRESERVDT → EDBD 14:01 → C.EDB 14:05 → C.MS4W 20:27 → UNDOADMOB 20:27 → OBSVTOIN 12-10 09:53
PROVIDERS: ADMIT Hospitalist; ATTEND Hospitalist
DX: J11.1 Influenza due to unidentified influenza virus with other respiratory manifestations (principal); G93.41 Metabolic encephalopathy; G91.9 Hydrocephalus, unspecified; C91.10 Chronic lymphocytic leukemia of B-cell type not having achieved remission; I48.91 Unspecified atrial fibrillation; N40.0 Benign prostatic hyperplasia without lower urinary tract symptoms; F32.9 Major depressive disorder, single episode, unspecified; I10 Essential (primary) hypertension; F02.80 Dementia in other diseases classified elsewhere, unspecified severity, without behavioral disturbance, psychotic disturbance, mood disturbance, and anxiety; G20 Parkinson's disease; D75.1 Secondary polycythemia; Z86.711 Personal history of pulmonary embolism; Z98.2 Presence of cerebrospinal fluid drainage device; Z79.01 Long term (current) use of anticoagulants; Z79.52 Long term (current) use of systemic steroids; Z79.899 Other long term (current) drug therapy

== ENCOUNTER → 2017-01-07 | Day surgery (SDC) | payer OTHER ==
[~2017-01-07] VITALS: Ht 170.2 cm; Wt 86.5 kg
[~2017-01-07] MED LIST changes: +ACET-1311 PO; +ACET500T57 PO; -ALBU0.08 INH; +CEFAZOLIN 2000 MG/60 ML D5W 60 ML IV SCH; +CHOL20009 PO; +DABI1CAP PO; +IODIXANOL (VISIPAQUE) 270 MG/ML 50ML XX ONE; +LIDOCAINE HCL 1% 20 ML VIAL INJ ONE; +LISI-526 PO; +METO1TAB69 PO; +PANT1TAB48 PO; -PRD10 PO; +PRED-301 PO; +SENN-65 PO; +SODIUM CHLORIDE 0.9% 1000ML 1,000 ML IV SCH; +TAMS0.4C38 PO; -ZOLP5TAB PO
[2017-01-07 09:07] VITALS: BP 135/75; PULSE 49; TEMP 36.9; O2SAT 95; Ht 170.2 cm; Wt 86.5 kg
[2017-01-07 09:13] LABS: BLOOD UREA NITROGEN 22 mg/dl (7-18)
--- NOTE | 2017-01-07 09:13 | History and Physical ---
History & Physical Date Jan 07, 2017. (Lizbeth Whelan, CARMEN) Chief Complaint Hx DVT/PE, need ivc filter (Lizbeth Whelan, CARMEN) History of Present Illness The patient is a 71 year old male with hx of CLL, normal pressure hydrocephalus s/p shunt, DVT/PE, HTN, seen today for IVC filter insertion d/t pt requiring interruption of anticoagulation for shunt replacement. Pt speaks broken Niuean , son present. States pt had DVT in leg early 2015 and was placed on Coumadin, but AC stopped 3-6 months later and pt then developed large PE. Has been on pradaxa since summer 2015. Pt denies CARBAJAL, fever, chills, chest pain, SOB, abd pain, N/V, rest pain, claudication, other complaints. (Lizbeth Whelan, CARMEN) Allergies Coded Allergies: No Known Allergies (Unverified , 01/07/17) Home Medications Scheduled Calcium/Vitamin D (Os-Pankaj 500 Plus D), 1 TAB PO DAILY Cholecalciferol (Vitamin D), 1 TAB PO DAILY Dabigatran Etexilate Mesylate (Pradaxa), 2 CAP PO BID Docusate Sodium (Docusate Sodium), 1 CAP PO BID Finasteride (Proscar), 5 MG PO DAILY Flecainide (Tambocor), 50 MG PO BID Lisinopril (Prinivil), 30 MG PO DAILY Metoprolol Succ (Toprol Xl) (Toprol-Xl ), 100 MG PO DAILY Prednisone (Prednisone), 10 MG PO DAILY Tamsulosin Hcl (Flomax), 0.4 MG PO DAILY Scheduled PRN Acetaminophen (Tylenol), 650 MG PO Q4 PRN for Pain or Fever Problem List Medical Problems: (1) CLL (chronic lymphocytic leukemia) (2) Hypoxia (3) Influenza A (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 (5) Pulmonary emboli (6) SIRS (systemic inflammatory response syndrome) (7) Weakness (Lizbeth Whelan, CARMEN) Surgical / Medical History Hx Cardiac Surgery: No Hx Abdominal Surgery: No Hx Cancer Surgery: No Hx Thoracic Surgery: No Hx Orthopedic: No Hx Urinary Tract Surgery: No Past Medical/Surgical History: Cancer, Hypertension, Pulmonary Emboli (Lizbeth Whelan, CARMEN) Family History Cancer Hypertension (Lizbeth Whelan PA-C) Cancer Hypertension (Yehuda Landaverde M.D.) Social History Smoking Status: Never Smoker Hx Tobacco Use In Past Year?: No Hx Alcohol Use - Type & Amnt: No Hx Substance Use -Type & Amnt: No (Lizbeth Whelan, CARMEN) Review of Systems Constitutional: + malaise, No chills, No fever Skin: No change in color Eyes: No visual changes ENMT: No sore throat Respiratory: No HAWK, No cough, No hemoptysis, No short of breath Cardiovascular: No chest pain, No edema, No intermittent claudication, No palpitations, No syncope Gastrointestinal: No abdominal pain, No nausea, No vomiting Neurologic: + lethargy, No dizziness, No headache (Lizbeth Whelan PA-C) Physical Exam Constitutional: General Apperance: well-nourished, well-developed Level of Distress: NAD, chronically ill Psychiatric: Mental Status: active & alert, abnormal affect (flat) Orientation: oriented except where noted, to time, to place, to person Memory: recent memory normal, remote memory normal Head: normocephalic, atraumatic Eyes: EOM: EOMI ENMT: normal ENT inspection, hearing grossly normal Neck: supple, trachea midline Lungs: Respiratory effort: no dyspnea Auscultation: no wheezing, no rales/crackles, no rhonchi, decreased breath sounds Cardiovascular: Apical Impulse: not displaced Heart Auscultation: RRR, no murmurs, no rubs, no gallops Peripheral Pulses: Pulses: full and equal, in all extremities except if noted Bruits: none appreciated Carotid Pulse: normal on the left, normal on the right Brachial Pulses: normal on the left, normal on the right Radial Pulse: normal on the left, normal on the right Femoral Pulse: normal on the left, normal on the right Posterior Tibialis Pulse: decreased on the left, decreased on the right Dorsalis Pedis Pulse: decreased on the left, decreased on the right Abdomen: Bowel Sounds: normal Inspection & Palpation: soft, non-distended, no tenderness, guarding & rebound Musculoskeletal: normal strength (5/5 throughout), normal tone Extremities: Upper Right: no cyanosis, no edema, no varicosities Upper Left: no cyanosis, no edema, no varicosities Lower Right: no cyanosis, no varicosities, no palpable cord, edema Lower Left: no cyanosis, no varicosities, no palpable cord Neurologic: Cranial Nerves: grossly intact Sensation: grossly intact (Lizbeth Whelan, PA-C) Assessment and Plan ASSESSMENT and PLAN: Hx DVT/PE, Interruption of anticoagulation Pt for IVC filter insertion today by Dr Landvaerde. Procedure, risks, benefits , and alternatives discussed with pt and family present. Pt expresses understanding and agreement. Will see pt in 3-4 months to discuss possible removal. (Lizbeth Whelan, PA-C) Patient was seen, examined, and chart reviewed. Agree with exam and treatment plan of the Vascular PA. I have discussed the risks options and benefits of the procedure with the patient. The patient understands the risks options and benefits and agrees to the procedure. (Yehuda Landaverde M.D.)
--- NOTE | 2017-01-07 11:01 | [facility] Post Operative Brief Note ---
Immediate Operative Summary Operative Date Jan 07, 2017. Pre-Operative Diagnosis history deep vein thrombosis and pulmonary emboli, for craniotomy Post-Operative Diagnosis same Procedure(s) Performed Insertion of Inferior Vena Cava Filter, Right Jugular Approach, Ultrasound Localization of Right Internal Jugular Vein, Fluroscopy for Positioning Surgeon Dr. Brennan Boiler Tube Reamer Surgeon(s) Dr. Shine Estimated Blood Loss 2 ml Findings no cava clot, filter in upright position Specimens none Anesthesia Local Complication(s) None Disposition
--- NOTE | 2017-01-07 11:03 | Discharge Instructions ---
Discharge Instructions Date of Service Jan 07, 2017. Visit Reason for Visit: Deep Vein Thrombosis, Pulmonary Embolism Discharge Discharge Diagnosis / Problem: DVT, pre op craniotomy Discharge Goals Goal(s): Therapeutic intervention Activity Recommendations Activity Limitations: per Instructions/Follow-up section Anesthesia . Post Anesthesia Instructions: If you have had General Anesthesia or IV Sedation: * Do not drive today. * Resume driving when surgeon permits. * Do not make important decisions or sign legal documents today. * Call surgeon for: 1. Temperature elevations greater than 101 degrees F. 2. Uncontrollable pain. 3. Excessive bleeding. 4. Persistent nausea and vomiting. 5. Medication intolerance (nausea, vomiting or rash). * For nausea and vomiting use only clear liquids such as: tea, soda, bouillon until nausea subsides, then gradually increase diet as tolerated. * If you have any concerns or questions, call your surgeon's office. If physician is unavailable and it is an emergency, call 911 or go to the nearest emergency room. . Instructions / Follow-Up Instructions / Follow-Up Call [phone] with any questions or concerns. SPECIAL CARE INSTRUCTIONS: Medications: * Continue to take your medications as directed. If you have been given a prescription for Plavix, please fill it immediately and take as directed. Incision Care: * Your puncture site may have some bruising and minor swelling for about one week. * You will have a small dressing covering your puncture site. You may remove the dressing after 24 hours and shower. You may let the warm soapy water run over it, but be sure to dry the puncture site well and keep it dry. * DO NOT IMMERSE THE INCISION IN A TUB/POOL/etc. UNTIL HEALED. * Puncture sites should be kept covered with a band-aid until it begins to heal. Restrictions: * Depending on whether you leg or arm was punctured to access the arteries, you will be required to lay flat, hold your arm still, or both, for about 4 hours after the procedure to prevent bleeding. * Limit your activity for the first 48 hours. You may walk and go up and down steps. Avoid excessive bending or movement at the puncture site. Possible Complications: * Excessive Swelling - after blood flow is improved you may notice increased swelling in the lower legs. This is a normal response. This usually depends on the amount of blockages in the leg, how long they have been there prior to your procedure and how much blood flow was restored. Elevating your legs will help to improve this. Please notify our office ([phone] ) if the swelling does not go away after lying in bed overnight. * Infection/Drainage/Bleeding - Drainage or bleeding from the puncture site should be minimal. If you have excessive bleeding or drainage, call our office ([phone]) right away. * Pain - You may experience some mild pain or soreness at your puncture site. If your pain does not improve, please contact our office ([phone]). Call your doctor and seek emergent treatment if you develop: * Temperature above 101 degrees * Any fever or chills * Any redness or purulent drainage from the puncture site * Any new dusky/blue colored toes or feet with coolness or sharp or aching pain. SKIN IRRITATION: * You may experience some redness and/or swelling in the area where radiation was administered. If any skin irritation occurs, please contact your family physician. FOLLOW UP VISIT: Keep any scheduled doctor appointments. Diet Recommendations Recommended Home Diet: resume previous diet Procedures Procedures Performed: Insertion of Inferior Vena Cava Filter, Right Jugular Approach, Ultrasound Localization of Right Internal Jugular Vein, Fluroscopy for Positioning Pending Studies Studies pending at discharge: no Medical Emergencies . Who to Call and When: Medical Emergencies: If at any time you feel your situation is an emergency, please call 911 immediately. . Non-Emergent Contact Non-Emergency issues call your: Surgeon . . "Provider Documentation" section prepared by Yehuda Brennan.
[2017-01-07 11:20] VITALS: BP 157/74; PULSE 52; TEMP 36.7; O2SAT 96
[2017-01-07 11:50] VITALS: BP 131/71; PULSE 50; TEMP 36.7; O2SAT 96
--- NOTE | 2017-01-07 12:10 | DIAGNOSTIC IMAGING REPORT ---
DATE OF PROCEDURE: 01/07/2017 PREOPERATIVE DIAGNOSIS: Massive pulmonary embolism and upcoming neurologic surgical procedure. POSTOPERATIVE DIAGNOSIS: Same. PROCEDURES: 1. Ultrasound guided access, right internal jugular vein. 2. Insertion of Cook Celect retrievable inferior vena cava filter. SURGEON: Dr. Yehuda Brennan. DIRECTOR IN[employer]OUND SALES: Tomas Shine MD ANESTHESIA: Local anesthetic only. COMPLICATIONS: None. ESTIMATED BLOOD LOSS: 3 mL. INDICATIONS: This is a 71-year-old male with lower extremity DVT and massive PE. He also has normal pressure hydrocephalus. He is set to undergo a shunt replacement by the neurosurgical team in the near future. They have recommended IVC filter placement given his history of venous thromboembolism. Risks, benefits, alternatives were explained to the patient for the above procedure and he agreed to proceed. PROCEDURE IN DETAIL: The patient was brought to the endovascular suite and placed in the supine position. The right neck was prepped and draped in the normal sterile fashion. A timeout was performed and all parties agreed to correct patient and procedure to be performed. Under ultrasound guidance, the right internal jugular vein was accessed with a Cook needle after local anesthetic had been administered. The wire was inserted to the level of the inferior vena cava filter. An angled Glidewire was used. The Cook Celect filter was brought onto the field. The sheath was advanced to approximately level of the L2 vertebral body. Injection through the sheath confirmed the level of the renal veins. The right renal vein was lower. The filter was then advanced through the sheath. We ensured that the sheath was below the renal veins. The filter was advanced and was deployed. Completion imaging showed the filter to be in good position without any tilt or maldeployment. The procedure was terminated with good results. The patient was transferred to recovery room in satisfactory condition. IDr. Brennan was present and scrubed for the entire procedure. [facility]
== END | disposition home or self-care (01) ==
LOC: C.ACU 08:17
PROVIDERS: ATTEND Surgery Vascular Surgery
DX: I26.99 Other pulmonary embolism without acute cor pulmonale (principal); I82.409 Acute embolism and thrombosis of unspecified deep veins of unspecified lower extremity; C91.10 Chronic lymphocytic leukemia of B-cell type not having achieved remission; Z79.899 Other long term (current) drug therapy

== ENCOUNTER → 2017-07-05 | Outpatient (CLI) | payer OTHER ==
[~2017-07-05] MED LIST changes: -ACET500T57 PO; -CARB25TA12 PO; -CEFAZOLIN 2000 MG/60 ML D5W 60 ML IV SCH; -CHOL20007 PO; -CITA10TA4 PO; -IODIXANOL (VISIPAQUE) 270 MG/ML 50ML XX ONE; -LIDOCAINE HCL 1% 20 ML VIAL INJ ONE; -LSNP/30 PO; -PANT1TAB48 PO; -PRD75 PO; -PRED10TA PO; -SENN-65 PO; -SODIUM CHLORIDE 0.9% 1000ML 1,000 ML IV SCH; -TPRSR/100 PO
[2017-07-05 11:49] LABS: BASO % 0.5 %; BASO ABS # 0.05 K/uL (0-0.2); COMPLETE YES; EOS % 3.9 %; HEMATOCRIT 41.4 % (42-52); IG% 0.3 %; LYMPH % 45.2 %; LYMPH ABS # 4.14 K/uL (1.2-3.4); MEAN CELL VOLUME 86.6 fL (80-100); MEAN CORPUSCULAR HEMOGLOBIN 30.3 pg (25-34); MEAN PLATELET VOLUME 10.9 fL (7.4-10.4); MONO % 12.3 %; NEUT % 37.8 %; PLATELET COUNT 168 K/uL (130-400); RED BLOOD COUNT 4.78 M/uL (4.7-6.1); WHITE BLOOD COUNT 9.16 K/uL (4.8-10.8)
[2017-07-05 12:06] LABS: BLOOD UREA NITROGEN 24 mg/dl (7-18); BUN/CREATININE RATIO 16.3 (10-20); CALCIUM 8.7 mg/dl (8.5-10.1); CARBON DIOXIDE 29 mmol/L (21-32); CHLORIDE 114 mmol/L (98-107); GLUCOSE 77 mg/dl (70-99); POTASSIUM 3.9 mmol/L (3.5-5.1); SODIUM 149 mmol/L (136-145)
== END ==
LOC: C.LABCC 11:18
PROVIDERS: ATTEND Internal Medicine
DX: R60.9 Edema, unspecified (principal)

== ENCOUNTER → 2017-10-19 | Outpatient (CLI) | payer OTHER ==
[~2017-10-19] MED LIST changes: +METO100T44 PO; -METO1TAB69 PO
[2017-10-19 17:21] LABS: HEMATOCRIT 47.7 % (42-52); MEAN CELL VOLUME 86.9 fL (80-100); MEAN CORPUSCULAR HEMOGLOBIN 30.4 pg (25-34); MEAN PLATELET VOLUME 10.5 fL (7.4-10.4); PLATELET COUNT 173 K/uL (130-400); RED BLOOD COUNT 5.49 M/uL (4.7-6.1)
[2017-10-19 18:13] LABS: BLOOD UREA NITROGEN 19 mg/dl (7-18); BUN/CREATININE RATIO 15.8 (10-20); CALCIUM 8.6 mg/dl (8.5-10.1); CARBON DIOXIDE 28 mmol/L (21-32); CHLORIDE 105 mmol/L (98-107); CREATININE 1.22 mg/dl (0.60-1.40); GLUCOSE 98 mg/dl (70-99); POTASSIUM 4.2 mmol/L (3.5-5.1); SODIUM 138 mmol/L (136-145)
== END | disposition home or self-care (01) ==
LOC: C.LAB 16:35
PROVIDERS: ATTEND Internal Medicine Cardiovascular Disease
DX: I10 Essential (primary) hypertension (principal); I48.0 Paroxysmal atrial fibrillation; N40.1 Benign prostatic hyperplasia with lower urinary tract symptoms

== ENCOUNTER 2021-01-24 11:45 | Observation (INO) ==
--- NOTE | 2021-01-24 14:23 | Emergency Department Note ---
Impression & Plan Weakness, NPH (normal pressure hydrocephalus), Bilateral edema of lower extremity ED Provider Note NAME: SANDY ZAMORA AGE: 75 SEX: M ARRIVES VIA: Ambulance INFORMANT: Son at bedside, patient ED PROVIDER(S): Sylwia Bryson MD CHIEF COMPLAINT: Weakness, unable to transfer this morning PLAN: Disposition: Admission Condition: fair Referral: hospitalist MEDICAL DECISION MAKING: This pt was evaluated and appeared to be in no distress. IV access was obtained and lab work was drawn. Pt's son states pt is due to go to [facility] in 2 days for respite care. It seems he and his are struggling with day to day activities. Pt was medically evaluated and noted to have significant bilateral LE edema and is severely deconditioned. Case management was consulted and did contact [facility] but did not hear back from their admissions. Pt was referred to the hospitalist for further management. Triage Nursing notes reviewed. Additional history obtained from son. Prior medical records reviewed [facility] Vital Signs: reviewed and remarkable for HTN Differential diagnosis: Infection, dehydration, metabolic abnormality, hypo/hyperglycemia, electrolyte disturbance, anemia, hypoxia, cardiac sources, intracerebral event, toxicologic, neurologic, as well as other pathologies. Diagnostics interpreted by me: ECG: sinus bradycardia 59 bpm, premature supraventricular complex, inferior Q waves, [id number]- normal, normal ST segments Cardiac Monitoring: an order for cardiac monitoring was placed and pt is noted to be in a NSR at 65 bpm. Laboratory studies: See below Imaging studies: XR chest 1V portable HISTORY: weakness COMPARISON: Chest 12/09/2016. FINDINGS: No pneumothorax. No pleural effusions. There are low lung volumes. Stable hazy appearance to the left lung base. No new focal lung consolidations to suggest pneumonia. No evidence for pulmonary edema. Right-sided ventriculoperitoneal shunt catheter is noted. There is an old right-sided ventriculoperitoneal shunt catheter, unchanged. Heart remains enlarged. IMPRESSION: Stable cardiomegaly and low lung volumes. ACT 112: Negative or not required by law. Electronically signed by: Lance Loco M.D. 01/24/2021 2:41 PM Dictated: 01/24/21 1438Transcribed: 01/24/[address] DOSE: 1092.33 mGy.cm HISTORY: Weakness, NPH, anticoagulation TECHNIQUE: Multiaxial CT images of the head were performed without the use of intravenous contrast. Automated exposure control was utilized for this study. A dose lowering technique was utilized adhering to the principles of ALARA. Comparison: Head CT 12/09/2016. Findings: The paranasal sinuses and mastoid air cells are clear. There is again noted a right occipital approach ventriculostomy catheter which terminates in the left lateral ventricle. This is unchanged in position. There is severe hydrocephalus most pronounced at the lateral ventricles. This remains unchanged. There is no mass, hematoma, midline shift, acute infarct. Impression: 1. No acute intracranial abnormality. 2. No change in the ventriculostomy catheter and severe hydrocephalus. ACT 112: Negative or not required by law. Electronically signed by: Lance Loco M.D. 01/24/2021 3:07 PM Dictated: 01/24/21 1503Transcribed: 01/24/21 150 Consultation(s): hospitalist HPI: 75/M arrives for evaluation of generalized weakness that has been increasing. Pt has h/o normal pressure hydrocephalus and is largely wheelchair bound. His assists him with transfers but he is growing weak. Today the pt had a near fall, happened to fall into the chair avoiding injury. Pt has had no fever, CP, SOB. He has been given COVID VAX x 2. He is due for respite care in 2 days at [facility]. He denies any injury today. Son states BLE edema is normal for pt. ROS: See above HPI for pertinent positives & negatives. A total of 10 systems reviewed and were otherwise negative. PAST MEDICAL HISTORY:See Below PAST SURGICAL HISTORY:See Below FAMILY HISTORY:See Below SOCIAL HISTORY:See Below HOME MEDICATIONS:See Below ALLERGIES:See Below VITALS:See Below PHYSICAL EXAMINATION: Vital signs reviewed. General: Chronically ill appearing 75 yo male, in no significant distress. HEENT: No scleral icterus, PERRLA, neck supple. Atraumatic. Cardiovascular: Regular rate and rhythm, no extra sounds. Pulmonary: Clear to auscultation bilaterally, normal work of breathing. Abdomen: Soft, obese nontender, nondistended, positive bowel sounds. Musculoskeletal: Atraumatic, 3+ bilateral LE peripheral edema. Neurologic: Patient awake alert and minimally conversant. Answers simple questions. Flat affect. Skin: Warm, dry, venous status changes, small lateral ulceration on R ankle. Sylwia Bryson MD Past Med/Surg History Medical History Acid reflux BPH with urinary obstruction Compression fracture of lumbar vertebra Edema Glaucoma [place] filter in place Hypertension Obesity Obstructive sleep apnea Osteoporosis Parkinsonism Paroxysmal atrial fibrillation Pneumonia Pulmonary nodule Renal cyst, acquired, left Right ventricular dilation Sinus bradycardia SOB (shortness of breath) Vitamin D deficiency Surgical History S/P ventricular shunt placement Family History Mother Breast cancer Coronary heart disease Hypertension Father Myocardial infarction Brother Cancer Leukemia- at 73 Social History Smoking Status: Former smoker Age Started Using Tobacco: 20; Age Quit Using Tobacco: 30; Years Smoked: 10; Number of Years Since Quit: 44; Hx Alcohol Use: No Hx Substance Use: No Preferred Language: Citizen Of [place] Communication Ability: Impaired Communication Tools: Lip Movement/Reading Independent Video Producer Required: Yes, Video and Voice Beliefs That Will Affect Care: None marital status: Current Living Situation: Spouse Current Living Situation Comment: With who cannot continue to care for him current occupational status: retired current occupation: [employer] Feels Safe at Home: Yes Assistive Devices: Glasses Allergies Allergies Allergy/AdvReac Type Severity Reaction Status Date / Time No Known Allergies Allergy Unverified 01/24/21 14:26 Home Meds Home Medications Medication Instructions Recorded Confirmed alendronate 70 mg tablet 70 mg PO WEEKLY tab 06/13/19 01/24/21 calcium carbonate 600 mg calcium 600 mg PO BID tab 06/13/19 01/24/21 (1,500 mg) tablet cholecalciferol (vitamin D3) 50 2,000 units PO DAILY #90 tab 06/13/19 01/24/21 mcg (2,000 unit) tablet doxycycline hyclate 100 mg capsule 100 mg PO BID cap 06/13/19 01/24/21 loratadine 10 mg tablet 10 mg PO DAILY #30 tab 06/13/19 01/24/21 omeprazole 20 mg tablet,delayed 40 mg PO DAILY tab 06/13/19 01/24/21 release prednisone 5 mg tablet 5 mg PO DAILY tab 06/13/19 01/26/21 docusate sodium 100 mg capsule 100 mg PO DAILY cap 12/31/20 01/24/21 hydroxyzine HCl 10 mg tablet 15 mg PO HS PRN tab 12/31/20 01/24/21 melatonin 5 mg capsule 5 mg PO HS cap 12/31/20 01/24/21 Pradaxa 150 mg PO BID 01/24/21 01/24/21 desonide 1 applic TOPICAL BID PRN 01/24/21 01/24/21 fluocinonide 1 applic TOPICAL BID PRN 01/24/21 01/24/21 fluticasone propionate 2 spray INTRANASAL DAILY 01/24/21 01/24/21 furosemide 20 mg PO DAILY 01/24/21 01/24/21 hydrocortisone 1 applic TOPICAL UD PRN 01/24/21 01/24/21 hydrocortisone acetate 25 mg ND BID PRN 01/24/21 01/24/21 losartan 50 mg PO DAILY 01/24/21 01/24/21 sertraline 50 mg PO DAILY 01/24/21 01/24/21 Previous Rx's Medication Instructions Recorded metoprolol succinate 50 mg 50 mg PO DAILY #90 tab 02/19/20 tablet,extended release 24 hr finasteride 5 mg tablet 5 mg PO DAILY #90 tab 10/27/20 flecainide 50 mg tablet 50 mg PO Q12H #180 tab 12/17/20 Results & Data (ED) Vital Signs Vital Signs - 24 hr 01/24/21 12:02 01/24/21 13:37 Temperature 36.5 C Temperature Source Oral Pulse Rate 66 Pulse Rate [Finger] 65 Respiratory Rate 20 18 Respiratory Effort / Characteristics Non-Labored Spontaneous Respiratory Depth Normal Respiratory Pattern Regular Blood Pressure 170/80 H Blood Pressure [Right Arm] 164/92 H Blood Pressure Mean 110 Blood Pressure Mean [Right Arm] 116 Pulse Oximetry 94 95 Oxygen Delivery Method Room Air Room Air Sepsis Recent Fever Within 48 Hours No Sepsis New/Unexplained Change in Mental Status N/A Sepsis Action Taken by Nursing No Action Required Home Medications Current Medication List: was personally reviewed by me Laboratory Data Attestation: I reviewed the patient's lab results. Result diagrams: 01/25/21 05:54 01/25/21 05:54 Lab Results 01/24/21 01/24/21 01/24/21 Range/Units 13:45 14:10 14:10 WBC 9.73 (4.8-10.8) K/uL RBC 5.32 (4.7-6.1) M/uL Hgb 16.5 (14.0-18.0) g/dL Hct 45.4 (42-52) % MCV 85.3 (80-100) fL MCH 31.0 (25-34) pg MCHC 36.3 H (32-36) g/dL RDW Std Deviation 43.1 (36.4-46.3) fL RDW Coeff of Jose A 13.9 (11.5-14.5) % Plt Count 178 (130-400) K/uL MPV 11.1 H (7.4-10.4) fL Immature Gran % (Auto) 0.4 % Neut % (Auto) 48.9 % Lymph % (Auto) 38.1 % Towns % (Auto) 8.3 % Eos % (Auto) 3.8 % Baso % (Auto) 0.5 % Neut # (Auto) 4.75 (1.4-6.5) K/uL Lymph # (Auto) 3.71 H (1.2-3.4) K/uL Towns # (Auto) 0.81 H (0.11-0.59) K/uL Eos # (Auto) 0.37 (0-0.5) K/uL Baso # (Auto) 0.05 (0-0.2) K/uL Immature Gran # (Auto) 0.04 H (0.00-0.02) K/uL Sodium 143 (136-145) mmol/L Potassium 3.8 (3.5-5.1) mmol/L Chloride 111 H (98-107) mmol/L Carbon Dioxide 29 (21-32) mmol/L Anion Gap 3.0 (3-11) BUN 23 H (7-18) mg/dl Creatinine 1.36 (0.6-1.4) mg/dl Est Cr Clr Drug Dosing 56.2 ml/min Est GFR ( Amer) 58.6 Est GFR (Non-Af Amer) 50.5 BUN/Creatinine Ratio 16.7 (10-20) Glucose 87 (70-99) mg/dl Calcium 8.5 (8.5-10.1) mg/dl Magnesium 2.0 (1.8-2.4) mg/dl Total Bilirubin 0.6 (0.2-1) mg/dl AST 16 (15-37) U/L ALT 29 (12-78) U/L Alkaline Phosphatase 86 (45-117) U/L Troponin I < 0.015 (0-0.045) ng/ml NT-Pro-B Natriuret Pep 908 H (0-900) pg/ml Total Protein 5.6 L (6.4-8.2) gm/dl Albumin 3.1 L (3.4-5.0) gm/dl Globulin 2.5 (2.5-4.0) gm/dl Albumin/Globulin Ratio 1.2 (0.9-2) TSH 1.190 (0.300-4.500) uIu/ml Urine Color Yellow Urine Appearance Clear (Clear) Urine pH 5.5 (4.5-7.5) Ur Specific Collins 1.019 (1.000-1.030) Urine Protein Negative (Negative) Urine Glucose (UA) Negative (Negative) Urine Ketones Negative (Negative) Urine Blood Negative (Negative) Urine Nitrite Negative (Negative) Urine Bilirubin Negative (Negative) Urine Urobilinogen Negative (Negative) Ur Leukocyte Esterase Negative (Negative) COVID-19 Eval Order SARS-CoV-2 (PCR) (Negative) Influenza Type A (PCR) (Neg) Influenza Type B (PCR) (Neg) RSV (RT-PCR) (Neg) 01/24/21 01/24/21 Range/Units 14:10 14:10 WBC (4.8-10.8) K/uL RBC (4.7-6.1) M/uL Hgb (14.0-18.0) g/dL Hct (42-52) % MCV (80-100) fL MCH (25-34) pg MCHC (32-36) g/dL RDW Std Deviation (36.4-46.3) fL RDW Coeff of Jose A (11.5-14.5) % Plt Count (130-400) K/uL MPV (7.4-10.4) fL Immature Gran % (Auto) % Neut % (Auto) % Lymph % (Auto) % Towns % (Auto) % Eos % (Auto) % Baso % (Auto) % Neut # (Auto) (1.4-6.5) K/uL Lymph # (Auto) (1.2-3.4) K/uL Towns # (Auto) (0.11-0.59) K/uL Eos # (Auto) (0-0.5) K/uL Baso # (Auto) (0-0.2) K/uL Immature Gran # (Auto) (0.00-0.02) K/uL Sodium (136-145) mmol/L Potassium (3.5-5.1) mmol/L Chloride (98-107) mmol/L Carbon Dioxide (21-32) mmol/L Anion Gap (3-11) BUN (7-18) mg/dl Creatinine (0.6-1.4) mg/dl Est Cr Clr Drug Dosing ml/min Est GFR ( Amer) Est GFR (Non-Af Amer) BUN/Creatinine Ratio (10-20) Glucose (70-99) mg/dl Calcium (8.5-10.1) mg/dl Magnesium (1.8-2.4) mg/dl Total Bilirubin (0.2-1) mg/dl AST (15-37) U/L ALT (12-78) U/L Alkaline Phosphatase (45-117) U/L Troponin I (0-0.045) ng/ml NT-Pro-B Natriuret Pep (0-900) pg/ml Total Protein (6.4-8.2) gm/dl Albumin (3.4-5.0) gm/dl Globulin (2.5-4.0) gm/dl Albumin/Globulin Ratio (0.9-2) TSH (0.300-4.500) uIu/ml Urine Color Urine Appearance (Clear) Urine pH (4.5-7.5) Ur Specific Collins (1.000-1.030) Urine Protein (Negative) Urine Glucose (UA) (Negative) Urine Ketones (Negative) Urine Blood (Negative) Urine Nitrite (Negative) Urine Bilirubin (Negative) Urine Urobilinogen (Negative) Ur Leukocyte Esterase (Negative) COVID-19 Eval Order CovFluRsv at [facility] SARS-CoV-2 (PCR) NEGATIVE (Negative) Influenza Type A (PCR) Negative (Neg) Influenza Type B (PCR) Negative (Neg) RSV (RT-PCR) Negative (Neg) Administered Medications Discontinued Medications Alendronate Sodium (Alendronate Sodium 70 Mg Tab) 70 mg PO Stock@0600 ELICEO Stop: 02/24/21 16:59 Last Admin: 01/25/21 18:20 Dose: Not Given Documented by: [id number] Alendronate Sodium (Alendronate Sodium 70 Mg Tab) 70 mg PO Mo@0600 ELICEO Stop: 02/25/21 05:59 Last Admin: 01/26/21 06:34 Dose: Not Given Documented by: [id number] Calcium Carbonate (Calcium Carbonate 1250mg Tab) 1,250 mg PO BID ELICEO Stop: 02/23/21 20:59 Last Admin: 01/26/21 10:16 Dose: Not Given Documented by: [id number] Admin: 01/25/21 20:48 Dose: 1,250 mg Documented by: [id number] Admin: 01/25/21 09:05 Dose: 1,250 mg Documented by: [id number] Admin: 01/24/21 19:37 Dose: 1,250 mg Documented by: [id number] Dabigatran (Dabigatran Etexilate 75 Mg Cap) 150 mg PO BID ELICEO Stop: 02/23/21 20:59 Last Admin: 01/26/21 09:09 Dose: 150 mg Documented by: [id number] Admin: 01/25/21 20:51 Dose: 150 mg Documented by: [id number] Admin: 01/25/21 09:05 Dose: 150 mg Documented by: [id number] Admin: 01/24/21 19:36 Dose: 150 mg Documented by: [id number] Docusate Sodium (Docusate Sodium 100 Mg Cap) 100 mg PO DAILY ELICEO Stop: 02/24/21 08:59 Last Admin: 01/26/21 10:16 Dose: Not Given Documented by: [id number] Admin: 01/25/21 09:06 Dose: 100 mg Documented by: [id number] Finasteride (Finasteride 5 Mg Tab) 5 mg PO DAILY ELICEO Stop: 02/24/21 08:59 Last Admin: 01/26/21 09:10 Dose: 5 mg Documented by: [id number] Admin: 01/25/21 09:06 Dose: 5 mg Documented by: [id number] Flecainide Acetate (Flecainide Acetate 100 Mg Tablet) 50 mg PO Q12 ELICEO Stop: 02/23/21 20:59 Last Admin: 01/26/21 09:12 Dose: 50 mg Documented by: [id number] Admin: 01/25/21 20:49 Dose: 50 mg Documented by: [id number] Admin: 01/25/21 09:04 Dose: 50 mg Documented by: [id number] Admin: 01/24/21 19:39 Dose: 50 mg Documented by: [id number] Hydroxyzine HCl (Hydroxyzine Hcl 10 Mg Tab) 15 mg PO HS PRN PRN Reason: Itching Stop: 02/23/21 17:38 Last Admin: 01/24/21 19:38 Dose: 15 mg Documented by: [id number] Furosemide 40 mg/ Syringe 4 mls @ 4 mls/min IV 1815 ONE Stop: 01/24/21 18:16 Last Admin: 01/24/21 19:30 Dose: 4 mls/min Documented by: [id number] Methylprednisolone 4 mg/ (Syringe) 0.5 mls @ 1.5 mls/min IV DAILY ELICEO Stop: 02/25/21 08:59 Last Admin: 01/26/21 09:19 Dose: 1.5 mls/min Documented by: [id number] Loratadine (Loratadine 10 Mg Tab) 10 mg PO DAILY ELICEO Stop: 02/24/21 08:59 Last Admin: 01/26/21 09:10 Dose: 10 mg Documented by: [id number] Admin: 01/25/21 09:06 Dose: 10 mg Documented by: [id number] Losartan Potassium (Losartan Potassium 50 Mg Tab) 50 mg PO DAILY ELICEO Stop: 02/24/21 08:59 Last Admin: 01/26/21 09:09 Dose: 50 mg Documented by: [id number] Admin: 01/25/21 09:07 Dose: 50 mg Documented by: [id number] Melatonin (Melatonin 3 Mg Tab) 6 mg PO HS ELICEO Stop: 02/23/21 20:59 Last Admin: 01/25/21 20:49 Dose: 6 mg Documented by: [id number] Admin: 01/24/21 19:38 Dose: 6 mg Documented by: [id number] Metoprolol Succinate (Metoprolol Succ 50mg Ext Rel Tab) 50 mg PO DAILY ELICEO Stop: 02/24/21 08:59 Last Admin: 01/25/21 09:07 Dose: 50 mg Documented by: [id number] Metoprolol Succinate (Metoprolol Succ 50mg Ext Rel Tab) 50 mg PO 1230 ONE Stop: 01/26/21 12:31 Last Admin: 01/26/21 13:08 Dose: 50 mg Documented by: [id number] Metoprolol Tartrate (Metoprolol Tartrate 1 Mg/Ml Vial) 2.5 mg IV Q6 ELICEO Stop: 02/25/21 00:00 Last Admin: 01/26/21 06:23 Dose: 2.5 mg Documented by: [id number] Admin: 01/25/21 23:50 Dose: 2.5 mg Documented by: [id number] Pantoprazole Sodium (Pantoprazole 40 Mg Tab) 40 mg PO DAILY ELICEO Stop: 02/24/21 08:59 Last Admin: 01/26/21 09:11 Dose: 40 mg Documented by: [id number] Admin: 01/25/21 09:08 Dose: 40 mg Documented by: [id number] Prednisone (Prednisone 5 Mg Tab) 5 mg PO DAILY ELICEO Stop: 02/24/21 08:59 Last Admin: 01/25/21 09:04 Dose: 5 mg Documented by: [id number] Sertraline HCl (Sertraline Hcl 50 Mg Tablet) 50 mg PO DAILY ELICEO Stop: 02/24/21 08:59 Last Admin: 01/26/21 09:10 Dose: 50 mg Documented by: [id number] Admin: 01/25/21 09:08 Dose: 50 mg Documented by: [id number] Vitamin D (Cholecalciferol 1,000 Units 25 Mcg Tab) 2,000 units PO DAILY ELICEO Stop: 02/24/21 08:59 Last Admin: 01/26/21 09:11 Dose: 2,000 units Documented by: [id number] Admin: 01/25/21 09:08 Dose: 2,000 units Documented by: [id number] Discharge Plan Visit Data Chief Complaint: Leg Weakness, Bilateral ED Provider: Sylwia Bryson Discharge Problem: Weakness, NPH (normal pressure hydrocephalus), Bilateral edema of lower extremity Patient Disposition: Admitted As Inpatient Condition: Good Discharge Instructions Interventions: ED Discharge Assessment Last Done: 01/24/21 16:42
[2021-01-24 14:26] LABS: Basophils # (auto) 0.05 K/uL (0-0.2); Basophils % (auto) 0.5 %; Eosinophils # (auto) 0.37 K/uL (0-0.5); Eosinophils % (auto) 3.8 %; Hematocrit (blood only) 45.4 % (42-52); Hemoglobin 16.5 g/dL (14.0-18.0); Immature Granulocytes # (auto) 0.04 K/uL (0.00-0.02); Immature Granulocytes % (auto) 0.4 %; Lymphocytes # (auto) 3.71 K/uL (1.2-3.4); Lymphocytes % (auto) 38.1 %; Mean Corpuscular Hgb Conc 36.3 g/dL (32-36); Mean Corpuscular Volume 85.3 fL (80-100); Mean Platelet Volume 11.1 fL (7.4-10.4); Monocytes # (auto) 0.81 K/uL (0.11-0.59); Monocytes % (auto) 8.3 %; Neutrophils # (auto) 4.75 K/uL (1.4-6.5); Neutrophils % (auto) 48.9 %; Platelet Count 178 K/uL (130-400); RDW Coefficient of Variation 13.9 % (11.5-14.5); RDW Standard Deviation 43.1 fL (36.4-46.3); Red Blood Count 5.32 M/uL (4.7-6.1); White Blood Count 9.73 K/uL (4.8-10.8)
[2021-01-24 14:38] LABS: Appearance Urine Clear (Clear); Bilirubin Urine Negative (Negative); Blood Urine Negative (Negative); Color Urine Yellow; Glucose Urine UA Negative (Negative); Ketones Urine Negative (Negative); Leukocyte Esterase Urine Negative (Negative); Nitrite Urine Negative (Negative); Protein Urine Negative (Negative); Specific Gravity Urine 1.019 (1.000-1.030); Urobilinogen Urine Negative (Negative); pH Urine 5.5 (4.5-7.5)
--- NOTE | 2021-01-24 14:42 | XRay Report ---
XR chest 1V portable HISTORY: weakness COMPARISON: Chest 12/09/2016. FINDINGS: No pneumothorax. No pleural effusions. There are low lung volumes. Stable hazy appearance t o the left lung base. No new focal lung consolidations to suggest pneumonia. No evidence for pulmonar y edema. Right-sided ventriculoperitoneal shunt catheter is noted. There is an old right-sided ventri culoperitoneal shunt catheter, unchanged. Heart remains enlarged. IMPRESSION: Stable cardiomegaly and low lung volumes. ACT 112: Negative or not required by law. Electronically signed by: Lance Loco M.D. 01/24/2021 2:41 PM
[2021-01-24 14:43] LABS: Alanine Aminotransferase 29 U/L (12-78); Albumin Level 3.1 gm/dl (3.4-5.0); Aspartate Aminotransferase 16 U/L (15-37); BUN Creatinine Ratio 16.7 (10-20); Blood Urea Nitrogen 23 mg/dl (7-18); Calcium 8.5 mg/dl (8.5-10.1); Carbon Dioxide 29 mmol/L (21-32); Chloride 111 mmol/L (98-107); Creatinine Clr Calc Pharmacy 56.2 ml/min; Est GFR (African American) 58.6; Est GFR (Non-African American) 50.5; Glucose 87 mg/dl (70-99); Potassium 3.8 mmol/L (3.5-5.1); Sodium 143 mmol/L (136-145)
[2021-01-24 14:54] LABS: Albumin Globulin Ratio 1.2 (0.9-2); Alkaline Phosphatase 86 U/L (45-117); Bilirubin,Total 0.6 mg/dl (0.2-1); Globulin 2.5 gm/dl (2.5-4.0); Total Protein 5.6 gm/dl (6.4-8.2); Troponin I < 0.015 ng/ml (0-0.045)
--- NOTE | 2021-01-24 15:08 | CT Scan Report ---
HEAD CT NONCONTRAST CT DOSE: 1092.33 mGy.cm HISTORY: Weakness, NPH, anticoagulation TECHNIQUE: Multiaxial CT images of the head were performed without the use of intravenous contrast. A utomated exposure control was utilized for this study. A dose lowering technique was utilized adheri ng to the principles of ALARA. Comparison: Head CT 12/09/2016. Findings: The paranasal sinuses and mastoid air cells are clear. There is again noted a right occipit al approach ventriculostomy catheter which terminates in the left lateral ventricle. This is unchange d in position. There is severe hydrocephalus most pronounced at the lateral ventricles. This remains unchanged. There is no mass, hematoma, midline shift, acute infarct. Impression: 1. No acute intracranial abnormality. 2. No change in the ventriculostomy catheter and severe hydrocephalus. ACT 112: Negative or not required by law. Electronically signed by: Lance Loco M.D. 01/24/2021 3:07 PM
[2021-01-24 15:11] LABS: Influenza A virus by PCR Negative (Neg); Influenza B virus by PCR Negative (Neg); RSV by PCR Negative (Neg); SARS CoV2 RNA(COVID-19) InHosp NEGATIVE (Negative)
--- NOTE | 2021-01-24 16:25 | History & Physical Report ---
Date of Service January 24, 2021 Assessment & Plan (1) Weakness: (2) Gait abnormality: Patient with worsening weakness at home for unknown reason. Patient was anticipated to be placed at [facility] for at least 1 month or rehab per his . Recommend PT/OT while inpatient. Consult CM to work on [facility] placement. Admit to Med/Surg with tele (3) Bilateral edema of lower extremity: (4) Lower extremity pain, bilateral: With chronic edema, difficult to assess what is new/old. With pain in B/L LE, recommended repeat Doppler. Recurrent DVT seems unlikely with chronic Pradaxa, but with history of DVT/PE, will check. Continue Pradaxa while inpatient. With severe edema, will start Lasix 40 mg IV x 1 dose Repeat BMP tonight Repeat CBC, BMP tomorrow AM Monitor fluid status & continue PO Lasix tomorrow if appropriate Consult Cardiology with chronic Afib, chronic edema. Echo was updated within the past 1 month, so do not feel this needs updated unless Cardio says otherwise. EKG PRN Chest pain Patient was anticipated to have stress test and PAD studies per his as an outpatient next week- will wait on Cardio opinion regarding doing these inpatient vs waiting until outpatient. (5) Paroxysmal atrial fibrillation: (6) Hydrocephalus in adult: CT Head was stable. Monitor for neuro changes (7) Venous insufficiency: (8) Wound of right lower extremity: Consult Wound care nurse Elevated feet when able (9) HTN (hypertension): BP elevated in the ED. He was given Lasix as above. Continue to monitor. Continue home meds (10) DANAE (obstructive sleep apnea): Patient supposed to have outpatient sleep study per . Monitor for O2 desaturation over night. If needed, start O2 to maintain >92% (11) History of DVT (deep vein thrombosis): (12) History of pulmonary embolism: (13) DVT prophylaxis: Patient is on Pradaxa chronically. Continue. History of Present Illness Chief Complaint: Weakness, need for placement Primary Care Provider: Fabi Romero MD Patient is a 75 yo male with a complicated PMHx including DANAE, dyslipidemia, GERD, HTN with CKD III, BPH with obstruction, osteoporosis, chronic lower extremity edema, Normal pressure Hydrocephalus w/ TAB CUTTER shunt, CLL, bullous pemphigoid, and history of recurrent DVT/PE who presented to the ED with increasing weakness. The patient lives at home with his currently, but he was anticipated to go to [facility] on Tuesday for at least 1 month for rehab because his is having a difficult time taking care of him at home. The patient speaks very little [place] and did much better communicating with formal dial polisher. This was utilized while in the room with the patient and his . From discussion with his , Patient was previously able to get up and get into his wheelchair. Today, he was unable to get himself up and in his own wheelchair. He also was unable to understand that he should get in his wheelchair- seemed sligthly confused. Patient is a difficult historian even with dial polisher. He has severe SOB at night and during the day he is still SOB but not as bad as at night. He does have incontinence. Sometimes, he remembers to use the bathroom but sometimes he doesn't remember to go to the bathroom. He doesn't sleep well typically. This is chronic. Over the past year, he started to have the increased incontinence. He has chronic pain in his legs. He also has chronic edema in the legs, and he hasn't been able to walk for a long time. The patient has been taking furosemide 20 mg daily for about 1 week though he has been on and off for a long time. He had developed a wound on his leg, so the outpatient providers felt the fluid was contributing to the wound. He does follow with Cardiology outpatient- Dr. Howard. He had an Echo last month which showed EF 65%, grade I diastolic dysfunction, and moderate aortic sclerosis. Per his , the SOB this morning was increased compared to normal. No chest pain this morning, but he was upset as to why he was weak/falling. Since presentation, the patient's BP has been elevated. His labs have been unremarkable. No signs of infection. Stable electrolytes and renal function. TSH within norm. Trop undetectable. Urine negative. COVID negative. Head CT showed chronic changes with hydrocephalus and shunt but no acute abnormality. CXR showed stable cardiomegaly. No acute findings. Allergies Allergy/AdvReac Type Severity Reaction Status Date / Time No Known Allergies Allergy Unverified 01/24/21 14:26 Home Medications Medication Instructions Recorded Confirmed Type alendronate 70 mg tablet 70 mg PO WEEKLY tab 06/13/19 01/24/21 History calcium carbonate 600 mg calcium 600 mg PO BID tab 06/13/19 01/24/21 History (1,500 mg) tablet cholecalciferol (vitamin D3) 50 2,000 units PO DAILY #90 tab 06/13/19 01/24/21 History mcg (2,000 unit) tablet doxycycline hyclate 100 mg capsule 100 mg PO BID cap 06/13/19 01/24/21 History loratadine 10 mg tablet 10 mg PO DAILY #30 tab 06/13/19 01/24/21 History omeprazole 20 mg tablet,delayed 40 mg PO DAILY tab 06/13/19 01/24/21 History release prednisone 5 mg tablet See Rx Instructions PO .COMPLEX 06/13/19 01/24/21 History tab metoprolol succinate 50 mg 50 mg PO DAILY #90 tab 02/19/20 01/24/21 Rx tablet,extended release 24 hr finasteride 5 mg tablet 5 mg PO DAILY #90 tab 10/27/20 01/24/21 Rx flecainide 50 mg tablet 50 mg PO Q12H #180 tab 12/17/20 01/24/21 Rx docusate sodium 100 mg capsule 100 mg PO DAILY cap 12/31/20 01/24/21 History hydroxyzine HCl 10 mg tablet 15 mg PO HS PRN tab 12/31/20 01/24/21 History melatonin 5 mg capsule 5 mg PO HS cap 12/31/20 01/24/21 History dabigatran etexilate [Pradaxa] 150 mg PO BID 01/24/21 01/24/21 History desonide 1 applic TOPICAL BID PRN 01/24/21 01/24/21 History fluocinonide 1 applic TOPICAL BID PRN 01/24/21 01/24/21 History fluticasone propionate 2 spray INTRANASAL DAILY 01/24/21 01/24/21 History furosemide 20 mg PO DAILY 01/24/21 01/24/21 History hydrocortisone 1 applic TOPICAL UD PRN 01/24/21 01/24/21 History hydrocortisone acetate 25 mg NC BID PRN 01/24/21 01/24/21 History losartan 50 mg PO DAILY 01/24/21 01/24/21 History sertraline 50 mg PO DAILY 01/24/21 01/24/21 History Past Med/Surg History Medical History (Updated 01/24/21 @ 18:22 by Vika Barrett PA-C) Acid reflux BPH with urinary obstruction Compression fracture of lumbar vertebra Edema Glaucoma [place] filter in place Hypertension Obesity Obstructive sleep apnea Osteoporosis Parkinsonism Paroxysmal atrial fibrillation Pneumonia Pulmonary nodule Renal cyst, acquired, left Right ventricular dilation Sinus bradycardia SOB (shortness of breath) Vitamin D deficiency Surgical History (Updated 01/24/20 @ 13:50 by Laura Villalta) S/P ventricular shunt placement Family History (Updated 01/24/21 @ 18:15 by Vika Barrett PA-C) Mother Breast cancer Coronary heart disease Hypertension Father Myocardial infarction Brother Cancer Leukemia- at 73 Social History (Updated 01/24/20 @ 13:43 by Laura Villalta) Smoking Status: Former smoker Age Started Using Tobacco: 20; Age Quit Using Tobacco: 30; Years Smoked: 10; Number of Years Since Quit: 44; Hx Alcohol Use: No Hx Substance Use: No Preferred Language: Prydeinig Communication Ability: Effective Communication Ability Comment: Use dial polisher Implementation Advisor Required: Yes, Video and Voice Beliefs That Will Affect Care: None marital status: Current Living Situation: Spouse Current Living Situation Comment: With who cannot continue to care for him current occupational status: retired current occupation: Staffing Analyst Other Information That Helps Us Care for You: No Feels Safe at Home: Yes Safety Concerns: Feels Safe At This Time Assistive Devices: None Review of Systems Review of Systems: All systems reviewed & are unremarkable except as noted in HPI & below Physical Exam Constitutional: + obese; no acute distress Eyes: PERRL, conjunctivae normal, anicteric sclerae ENMT: external ear and nose normal, oropharynx normal Neck: trachea midline, no thyromegaly Respiratory: normal respiratory effort; no respiratory distress, does not use accessory muscles and no cough Auscultation: lungs clear to auscultation bilaterally and + diminished lung sounds (at bases) Difficult to exam well due to patient inability to sit up well Cardiovascular: Rate/Rhythm: regular rate Gastrointestinal (Abdomen): normal bowel sounds, soft, nontender, no hepatosplenomegaly Musculoskeletal: Severe edema in B/L LE Skin: + wound (RLE lateral lower leg with some clear drainage and red base) and + erythema (Mild chronic appearing erythema b/l LE) Neurologic: awake Speech / Cognition: normal speech Motor/Sensory: no tremor Psychiatric: Orientation: alert Affect: euthymic affect Results & Data Results & Data ([place]) Vital Signs (Past 12 Hours) Vital Signs Temp Pulse Pulse Resp BP BP Pulse Ox 01/24/21 15:36 66 20 185/115 H 94 01/24/21 14:11 59 L 20 163/94 H 94 01/24/21 14:09 94 01/24/21 13:37 65 18 164/92 H 95 01/24/21 12:02 36.5 C 66 20 170/80 H 94 Laboratory Results Laboratory Results - last 24 hr 01/24/21 01/24/21 01/24/21 13:45 14:10 14:10 WBC 9.73 RBC 5.32 Hgb 16.5 Hct 45.4 MCV 85.3 MCH 31.0 MCHC 36.3 H RDW Std Deviation 43.1 RDW Coeff of Jose A 13.9 Plt Count 178 MPV 11.1 H Immature Gran % (Auto) 0.4 Neut % (Auto) 48.9 Lymph % (Auto) 38.1 [place] % (Auto) 8.3 Eos % (Auto) 3.8 Baso % (Auto) 0.5 Neut # (Auto) 4.75 Lymph # (Auto) 3.71 H [place] # (Auto) 0.81 H Eos # (Auto) 0.37 Baso # (Auto) 0.05 Immature Gran # (Auto) 0.04 H Sodium 143 Potassium 3.8 Chloride 111 H Carbon Dioxide 29 Anion Gap 3.0 BUN 23 H Creatinine 1.36 Est Cr Clr Drug Dosing 56.2 Est GFR ( Amer) 58.6 Est GFR (Non-Af Amer) 50.5 BUN/Creatinine Ratio 16.7 Glucose 87 Calcium 8.5 Magnesium 2.0 Total Bilirubin 0.6 AST 16 ALT 29 Alkaline Phosphatase 86 Troponin I < 0.015 Total Protein 5.6 L Albumin 3.1 L Globulin 2.5 Albumin/Globulin Ratio 1.2 TSH 1.190 Urine Color Yellow Urine Appearance Clear Urine pH 5.5 Ur Specific [place] 1.019 Urine Protein Negative Urine Glucose (UA) Negative Urine Ketones Negative Urine Blood Negative Urine Nitrite Negative Urine Bilirubin Negative Urine Urobilinogen Negative Ur Leukocyte Esterase Negative COVID-19 Eval Order SARS-CoV-2 (PCR) Influenza Type A (PCR) Influenza Type B (PCR) RSV (RT-PCR) 01/24/21 01/24/21 14:10 14:10 WBC RBC Hgb Hct MCV MCH MCHC RDW Std Deviation RDW Coeff of Jose A Plt Count MPV Immature Gran % (Auto) Neut % (Auto) Lymph % (Auto) [place] % (Auto) Eos % (Auto) Baso % (Auto) Neut # (Auto) Lymph # (Auto) [place] # (Auto) Eos # (Auto) Baso # (Auto) Immature Gran # (Auto) Sodium Potassium Chloride Carbon Dioxide Anion Gap BUN Creatinine Est Cr Clr Drug Dosing Est GFR ( Amer) Est GFR (Non-Af Amer) BUN/Creatinine Ratio Glucose Calcium Magnesium Total Bilirubin AST ALT Alkaline Phosphatase Troponin I Total Protein Albumin Globulin Albumin/Globulin Ratio TSH Urine Color Urine Appearance Urine pH Ur Specific [place] Urine Protein Urine Glucose (UA) Urine Ketones Urine Blood Urine Nitrite Urine Bilirubin Urine Urobilinogen Ur Leukocyte Esterase COVID-19 Eval Order CovFluRsv at [facility] SARS-CoV-2 (PCR) NEGATIVE Influenza Type A (PCR) Negative Influenza Type B (PCR) Negative RSV (RT-PCR) Negative Diagnostic Findings CT HEAD: Impression: 1. No acute intracranial abnormality. 2. No change in the ventriculostomy catheter and severe hydrocephalus. CXR: IMPRESSION: Stable cardiomegaly and low lung volumes. Code Status & VTE Plan VTE Prophylaxis Plan VTE Prophylaxis will be ordered: Yes Supervising Physician Co-Signing Physician Notes Pt seen and examined by me, care coordinated with Kaitlyn Barrett PA-C, pls refer to her note above for further detail. Pt is a 75 yo male with a complicated PMHx including DANAE, dyslipidemia, GERD, HTN with CKD III, BPH with obstruction, osteoporosis, chronic lower extremity edema, Normal pressure Hydrocephalus w/ TAB CUTTER shunt, CLL, bullous pemphigoid, and h istory of recurrent DVT/PE who presented to the ED with increasing weakness. The patient lives at home with his currently, but he was anticipated to go to [facility] on Tuesday for at least 1 month for rehab because his is having a difficult time taking care of him at home. Currently pt is laying in bed in NAD however has some difficulty to provide hx and appears quite weak, not able to help much w/ phys. exam. Heart seems regular, lungs sounds clear in upper lobes but somewhat diminished at bases, no wheezes noted. Abdomen is obese, + bowel sounds, nontender. There is sign. LE edema 2+ b/l and tenderness (pt says his LE are chronically tender). Pt does move extremities spontaneously, he is alert and oriented. Hx however provided better from pt's . Prydeinig dial polisher used. CXR reviewed - cardiomegaly, low lung volumes, stable hazy appearance of L lung base. Will obtain pro-BNP, echo recently obtained, will discuss w/ cardiology if needs repeating. Trop - negative. Will provide IV lasix, will cont. to closely monitor, BMP ordered for this evening. Consider repeat CXR after diuresis. Pati Alarcon MD
[2021-01-24] MEDS ORDERED: POLYETHYLENE (MIRALAX) 17 GM PACK PO PRN (17:12)
[2021-01-24] MEDS ORDERED: ACETAMINOPHEN 325 MG TAB PO PRN (17:12)
[2021-01-24] MEDS ORDERED: DESONIDE CR 15 GM TUBE EXT PRN (17:39)
[2021-01-24] MEDS ORDERED: hydrOXYzine HCl 10 MG TAB PO PRN (17:39)
[2021-01-24] MEDS ORDERED: FUROSEMIDE 40 MG in SYRINGE 0 ML IV ONE (18:15)
[2021-01-24 19:18] LABS: NT Pro B Type Natriuretic Pept 908 pg/ml (0-900)
[2021-01-24 19:33] LABS: BUN Creatinine Ratio 14.3 (10-20); Calcium 8.9 mg/dl (8.5-10.1); Creatinine Clr Calc Pharmacy 53.3 ml/min; Est GFR (Non-African American) 54.4; Potassium 3.8 mmol/L (3.5-5.1)
[2021-01-24] MEDS: DABIGATRAN ETEXILATE 75 MG CAP PO SCH (19:36)
[2021-01-24] MEDS: CALCIUM CARBONATE 1250MG TAB PO SCH (19:37)
[2021-01-24] MEDS: MELATONIN 3 MG TAB PO SCH (19:38)
[2021-01-24] MEDS: FLECAINIDE ACETATE 100 MG TABLET PO SCH (19:39)
[2021-01-25 06:05] LABS: Hematocrit (blood only) 46.1 % (42-52); Hemoglobin 16.6 g/dL (14.0-18.0); Mean Corpuscular Hemoglobin 30.8 pg (25-34); Mean Corpuscular Volume 85.5 fL (80-100); Mean Platelet Volume 10.7 fL (7.4-10.4); Platelet Count 159 K/uL (130-400); RDW Coefficient of Variation 13.8 % (11.5-14.5); RDW Standard Deviation 42.6 fL (36.4-46.3); Red Blood Count 5.39 M/uL (4.7-6.1); White Blood Count 8.88 K/uL (4.8-10.8)
[2021-01-25 06:46] LABS: BUN Creatinine Ratio 16.1 (10-20); Calcium 8.5 mg/dl (8.5-10.1); Creatinine Clr Calc Pharmacy 53.7 ml/min; Est GFR (African American) 63.6; Est GFR (Non-African American) 54.9; Potassium 3.5 mmol/L (3.5-5.1)
[2021-01-25] MEDS ORDERED: predniSONE 5 MG TAB PO SCH (09:00)
[2021-01-25] MEDS ORDERED: METOPROLOL SUCC 50MG EXT REL TAB PO SCH (09:00)
[2021-01-25] MEDS: FLECAINIDE ACETATE 100 MG TABLET PO SCH ×2 (09:04→20:49)
[2021-01-25] MEDS: CALCIUM CARBONATE 1250MG TAB PO SCH ×2 (09:05→20:48)
[2021-01-25] MEDS: DABIGATRAN ETEXILATE 75 MG CAP PO SCH ×2 (09:05→20:51)
[2021-01-25] MEDS: DOCUSATE SODIUM 100 MG CAP PO SCH (09:06)
[2021-01-25] MEDS: LORATADINE 10 MG TAB PO SCH (09:06)
[2021-01-25] MEDS: FINASTERIDE 5 MG TAB PO SCH (09:06)
[2021-01-25] MEDS: LOSARTAN POTASSIUM 50 MG TAB PO SCH (09:07)
[2021-01-25] MEDS: SERTRALINE HCL 50 MG TABLET PO SCH (09:08)
[2021-01-25] MEDS: PANTOprazole 40 MG TAB PO SCH (09:08)
[2021-01-25] MEDS: CHOLECALCIFEROL 1,000 UNITS 25 MCG TAB PO SCH (09:08)
--- NOTE | 2021-01-25 10:53 | Ultrasound Report ---
BILATERAL LOWER EXTREMITY VENOUS DOPPLER HISTORY: Bilateral lower extremity edema History PE, DVT, LE Edema and pain COMPARISON STUDY: Doppler study 05/24/2016 FINDINGS: There is normal compressibility, flow, and augmentation within the bilateral lower extremit y deep venous systems. IMPRESSION: No DVT within the right or left lower extremity. ACT 112: Negative or not required by law. Electronically signed by: Abhilash Hogue M.D. 01/25/2021 10:51 AM
--- NOTE | 2021-01-25 12:10 | Hospitalist Progress Note ---
Date of Service January 25, 2021 Assessment & Plan (1) Weakness: Generalized weakness and deconditioning secondary to underlying medical issues. PT/OT for reassessment and [facility] as previously planned. Will continue to optimize underlying medical issues as needed. (2) NPH (normal pressure hydrocephalus): History of NPH, [facility] shunt placed and then replaced. He has morbid obesity sedentary lifestyle and chronic dependent leg edema as well as other comorbidities. He has no acute changes recently other than progressive weakness and deconditioning. He is mentating at baseline. Plan for respite care at [facility] at time of discharge. PT/OT to evaluate (3) Lower extremity pain, bilateral: This is resolved. LE venous doppler was negative for DVT. There is chronic lower extremity edema present that is unchanged. (4) Paroxysmal atrial fibrillation: Cont flecainide, metoprolol and pradaxa per cardiology recommendations. This reflects what the patient has been taking long-term. (5) Wound of right lower extremity: present on arrival and was the result from a trauma (fall at home), Consul t Wound care nurse (6) HTN (hypertension): BP elevated in the ED. He was given Lasix as above. Continue to monitor. Continue home meds (7) DANAE (obstructive sleep apnea): The patient has a history of DANAE with a previous PSG in [place], notes an outpatient documentation reflect poor tolerance of CPAP mask. He was recently seen by pulmonology at [facility] with plans for a repeat split-night protocol polysomnogram which needs to be scheduled. Follow-up as outpatient. (8) DVT prophylaxis: Pradaxa DNR/DNI Dispo-to [facility] when bed available Nika Dyson DO [facility] Hospitalist Admission and Anticipated Discharge Date Admission Date: January 24, 2021 Subjective 75-year-old man taken to the ER by family who is struggling to care for him at home. Patient was slated to go to [facility] jail after the weekend. Generalized weakness had been increasing. He has a history of normal pressure hydrocephalus and is largely wheelchair-bound.Yeah for everybody yes and I does relate initially there were reports of bilateral lower extremity pain which is not present today. A venous Doppler bilaterally was negative for recurrent DVT and he continues on Pradaxa for history of VTE and paroxysmal atrial fibrillation. He has chronic lower extremity edema that is still present. Cardiology was consulted and recommended continuing flecainide and Pradaxa for paroxysmal atrial fibrillation. Although he is a non[place] speaker he is communicating well and denies any pain. He heartily ate his dinner without any issues. He has no issues with breathing, no conversational dyspnea and reports no shortness of breath. He denies any chest pain. He denies any other issues at this time. Significant urinary incontinence noted by the nursing staff. Review of Systems Review of Systems: All systems reviewed & are unremarkable except as noted in Subjective Physical Exam Physical Exam: CONSTITUTIONAL: WNWD, vitals as above, generally well- appearing EYES: normal conjunctivae, no scleral icterus ENT: external ear and nose normal, MMM RESPIRATORY: clear to auscultation bilaterally, no crackles, rales or wheezes, normal respiratory effort CARDIOVASCULAR: regular rate and rhythm, S1 and 2 heard without murmurs, gallops or rubs, no JVD, no peripheral edema GASTROINTESTINAL: soft, nontender, nondistended, no guarding. MUSCULOSKELETAL: generalized weakness, cannot sit up in bed independently, moves extremities symmetrically, head is normocephalic and atraumatic SKIN: warm and dry NEUROLOGIC: CN 2-12 grossly intact, no sensory deficit, normal cognition, normal speech PSYCHIATRIC: alert and cooperative Results & Data Results & Data ([facility]) Vital Signs (Past 12 Hours) Vital Signs Temp Pulse Resp BP BP Pulse Ox 01/25/21 09:07 80 154/99 H 01/25/21 08:29 36.3 C L 78 20 152/111 H 176/101 H 94 01/25/21 00:56 36.7 C 81 18 168/82 H 92 Laboratory Results Short CBC 01/24/21 01/25/21 Range/Units 14:10 05:54 WBC 9.73 8.88 (4.8-10.8) K/uL Hgb 16.5 16.6 (14.0-18.0) g/dL Hct 45.4 46.1 (42-52) % Plt Count 178 159 (130-400) K/uL BMP 01/24/21 01/24/21 01/25/21 14:10 19:09 05:54 Sodium 143 141 142 Potassium 3.8 3.8 3.5 Chloride 111 H 110 H 110 H Carbon Dioxide 29 25 26 BUN 23 H 18 20 H Creatinine 1.36 1.28 1.27 Glucose 87 92 90 Calcium 8.5 8.9 8.5 Cardiac Enzymes 01/24/21 Range/Units 14:10 Troponin I < 0.015 (0-0.045) ng/ml Liver Function 01/24/21 Range/Units 14:10 Total Bilirubin 0.6 (0.2-1) mg/dl AST 16 (15-37) U/L ALT 29 (12-78) U/L Alkaline Phosphatase 86 (45-117) U/L Albumin 3.1 L (3.4-5.0) gm/dl Urine 01/24/21 Range/Units 13:45 Urine Color Yellow Urine Appearance Clear (Clear) Urine pH 5.5 (4.5-7.5) Ur Specific [place] 1.019 (1.000-1.030) Urine Protein Negative (Negative) Urine Glucose (UA) Negative (Negative) Medications Administered Current Inpatient Medications Acetaminophen (Acetaminophen 325 Mg Tab) 650 mg PO Q4H PRN PRN Reason: pain/fever Stop: 02/23/21 17:11 Calcium Carbonate (Calcium Carbonate 1250mg Tab) 1,250 mg PO BID [facility] Stop: 02/23/21 20:59 Last Admin: 01/25/21 09:05 Dose: 1,250 mg Documented by: Dabigatran (Dabigatran Etexilate 75 Mg Cap) 150 mg PO BID [facility] Stop: 02/23/21 20:59 Last Admin: 01/25/21 09:05 Dose: 150 mg Documented by: Desonide (Desonide Cr 15 Gm Tube) 1 appln EXT BID PRN PRN Reason: Skin Irritation Stop: 02/23/21 17:38 Docusate Sodium (Docusate Sodium 100 Mg Cap) 100 mg PO DAILY [facility] Stop: 02/24/21 08:59 Last Admin: 01/25/21 09:06 Dose: 100 mg Documented by: Finasteride (Finasteride 5 Mg Tab) 5 mg PO DAILY [facility] Stop: 02/24/21 08:59 Last Admin: 01/25/21 09:06 Dose: 5 mg Documented by: Flecainide Acetate (Flecainide Acetate 100 Mg Tablet) 50 mg PO Q12 [facility] Stop: 02/23/21 20:59 Last Admin: 01/25/21 09:04 Dose: 50 mg Documented by: Hydroxyzine HCl (Hydroxyzine Hcl 10 Mg Tab) 15 mg PO HS PRN PRN Reason: Itching Stop: 02/23/21 17:38 Last Admin: 01/24/21 19:38 Dose: 15 mg Documented by: Loratadine (Loratadine 10 Mg Tab) 10 mg PO DAILY [facility] Stop: 02/24/21 08:59 Last Admin: 01/25/21 09:06 Dose: 10 mg Documented by: Losartan Potassium (Losartan Potassium 50 Mg Tab) 50 mg PO DAILY [facility] Stop: 02/24/21 08:59 Last Admin: 01/25/21 09:07 Dose: 50 mg Documented by: Melatonin (Melatonin 3 Mg Tab) 6 mg PO HS [facility] Stop: 02/23/21 20:59 Last Admin: 01/24/21 19:38 Dose: 6 mg Documented by: Metoprolol Succinate (Metoprolol Succ 50mg Ext Rel Tab) 50 mg PO DAILY [facility] Stop: 02/24/21 08:59 Last Admin: 01/25/21 09:07 Dose: 50 mg Documented by: Miscellaneous (Fosamax: Order Awaiting Action) 1 ea N/A QS [facility] Stop: 02/24/21 07:59 Pantoprazole Sodium (Pantoprazole 40 Mg Tab) 40 mg PO DAILY [facility] Stop: 02/24/21 08:59 Last Admin: 01/25/21 09:08 Dose: 40 mg Documented by: Polyethylene Glycol (Polyethylene (Miralax) 17 Gm Pack) 17 gm PO DAILY PRN PRN Reason: Constipation Stop: 02/23/21 17:11 Prednisone (Prednisone 5 Mg Tab) 5 mg PO DAILY [facility] Stop: 02/24/21 08:59 Last Admin: 01/25/21 09:04 Dose: 5 mg Documented by: Sertraline HCl (Sertraline Hcl 50 Mg Tablet) 50 mg PO DAILY [facility] Stop: 02/24/21 08:59 Last Admin: 01/25/21 09:08 Dose: 50 mg Documented by: Vitamin D (Cholecalciferol 1,000 Units 25 Mcg Tab) 2,000 units PO DAILY [facility] Stop: 02/24/21 08:59 Last Admin: 01/25/21 09:08 Dose: 2,000 units Documented by:
--- NOTE | 2021-01-25 13:53 | Cardiology Consultation ---
Date of Consultation January 25, 2021 Assessment & Plan (1) Paroxysmal atrial fibrillation: -currently in sinus rhythm. -continue flecainide and Pradaxa. (2) Bilateral edema of lower extremity: -has been a chronic finding. -suggest compression stockings and a salt restricted diet. -Dr. Lopez suggested Lasix during December 31 office visit, however, that was declined. (3) Hypertension: -borderline control on current regimen. (4) SOB (shortness of breath): -chronic finding according to Dr. Lopez's most recent office note. -suggest Lasix therapy. History of Present Illness Attending Physician: Nika Dyson, History of Present Illness Mr. Arguello 75-year-old male admitted yesterday with ambulatory dysfunction and weakness. This consultation was ordered to assist in his cardiac management. Of note, patient typically follows with Dr. Lopez in the outpatient setting. The patient was in his usual state of poor health until the day of presentation when the patient was unable to get up and into his wheelchair. Typically, this is an easy maneuver for him. He was also a bit confused according to his 's account. The patient carries a history of paroxysmal atrial fibrillation treated with rhythm control and long-term anticoagulation. He was just seen by Dr. Lopez on the 31 of December. During that office visit, the patient had his typical complaints of atypical chest discomfort and shortness of breath along with his chronic lower extremity edema. The patient did have an echocardiogram performed on December 23 which noted normal left ventricular systolic function with ejection fraction of 65-70%. There was evidence of moderate left ventricular hypertrophy. Currently, patient is resting comfortably in bed without complaints. Past medical and surgical history 1. Hypertension 2. Moderate LVH 3. Paroxysmal atrial fibrillation-2011 4. GERD 5. BPH 6. Obesity 7. Obstructive sleep apnea 8. Left lower extremity DVT-July 2015 9. Pulmonary embolism-April 2016 10. Walden filter 11. Normal pressure hydrocephalus 12. s/p LADDERMAN shunt 13. Parkinsonism 14. Renal cyst 15. Lumbar compression fractures 16. Glaucoma Social history lives with his No tobacco Social alcohol Family history Father and brother had early coronary artery disease. Review of systems A 10 review systems was negative except that described above. Allergies Allergy/AdvReac Type Severity Reaction Status Date / Time No Known Allergies Allergy Unverified 01/24/21 14:26 Home Medications Medication Instructions Recorded Confirmed Type alendronate 70 mg tablet 70 mg PO WEEKLY tab 06/13/19 01/24/21 History calcium carbonate 600 mg calcium 600 mg PO BID tab 06/13/19 01/24/21 History (1,500 mg) tablet cholecalciferol (vitamin D3) 50 2,000 units PO DAILY #90 tab 06/13/19 01/24/21 History mcg (2,000 unit) tablet doxycycline hyclate 100 mg capsule 100 mg PO BID cap 06/13/19 01/24/21 History loratadine 10 mg tablet 10 mg PO DAILY #30 tab 06/13/19 01/24/21 History omeprazole 20 mg tablet,delayed 40 mg PO DAILY tab 06/13/19 01/24/21 History release prednisone 5 mg tablet See Rx Instructions PO .COMPLEX 06/13/19 01/24/21 History tab metoprolol succinate 50 mg 50 mg PO DAILY #90 tab 02/19/20 01/24/21 Rx tablet,extended release 24 hr finasteride 5 mg tablet 5 mg PO DAILY #90 tab 10/27/20 01/24/21 Rx flecainide 50 mg tablet 50 mg PO Q12H #180 tab 12/17/20 01/24/21 Rx docusate sodium 100 mg capsule 100 mg PO DAILY cap 12/31/20 01/24/21 History hydroxyzine HCl 10 mg tablet 15 mg PO HS PRN tab 12/31/20 01/24/21 History melatonin 5 mg capsule 5 mg PO HS cap 12/31/20 01/24/21 History dabigatran etexilate [Pradaxa] 150 mg PO BID 01/24/21 01/24/21 History desonide 1 applic TOPICAL BID PRN 01/24/21 01/24/21 History fluocinonide 1 applic TOPICAL BID PRN 01/24/21 01/24/21 History fluticasone propionate 2 spray INTRANASAL DAILY 01/24/21 01/24/21 History furosemide 20 mg PO DAILY 01/24/21 01/24/21 History hydrocortisone 1 applic TOPICAL UD PRN 01/24/21 01/24/21 History hydrocortisone acetate 25 mg IN BID PRN 01/24/21 01/24/21 History losartan 50 mg PO DAILY 01/24/21 01/24/21 History sertraline 50 mg PO DAILY 01/24/21 01/24/21 History Patient History Medical History (Updated 01/24/21 @ 18:22 by Vika Barrett PA-C) Acid reflux BPH with urinary obstruction Compression fracture of lumbar vertebra Edema Glaucoma Jose Luis filter in place Hypertension Obesity Obstructive sleep apnea Osteoporosis Parkinsonism Paroxysmal atrial fibrillation Pneumonia Pulmonary nodule Renal cyst, acquired, left Right ventricular dilation Sinus bradycardia SOB (shortness of breath) Vitamin D deficiency Surgical History (Updated 01/24/20 @ 13:50 by Laura Villalta) S/P ventricular shunt placement Family History (Updated 01/24/21 @ 18:15 by Vika Barrett PA-C) Mother Breast cancer Coronary heart disease Hypertension Father Myocardial infarction Brother Cancer Leukemia- at 73 Social History (Updated 01/24/20 @ 13:43 by Laura Villalta) Smoking Status: Former smoker Age Started Using Tobacco: 20; Age Quit Using Tobacco: 30; Years Smoked: 10; Number of Years Since Quit: 44; Hx Alcohol Use: No Hx Substance Use: No Preferred Language: Kittitian Communication Ability: Impaired Communication Ability Comment: Use automotive parts interpreter Communication Tools: IPad Collar Padder Blindstitch Required: Yes, Video and Voice Beliefs That Will Affect Care: None marital status: Current Living Situation: Spouse Current Living Situation Comment: With who cannot continue to care for him current occupational status: retired current occupation: Receivable Clerk Other Information That Helps Us Care for You: No Feels Safe at Home: Yes Safety Concerns: Feels Safe At This Time Assistive Devices: None Physical Exam Physical Exam: In general is well-developed well-nourished male in no acute distress. HEENT exam is negative. Neck is supple with full carotid upstrokes. No obvious bruits. No jugular veinous distention. Cardiovascular exam reveals a regular rhythm with distant heart sounds. No obvious murmurs. No S3 or S4. Lungs are clear without rales, rhonchi or wheezes. Abdomen is soft without bruits. Extremities reveal intact radial artery pulses bilaterally. There is 1 to 2+ edema distal to the knees. Hyperpigmentation changes noted. Results & Data ([facility]) Vital Signs (Past 12 Hours) Vital Signs Temp Pulse Resp BP BP Pulse Ox 01/25/21 09:07 80 154/99 H 01/25/21 08:29 36.3 C L 78 20 152/111 H 176/101 H 94 Laboratory Results CBC notes hemoglobin 16.6, hematocrit 46.1, white count 8.88, and platelet count [id number]. Electrolytes note a sodium of 142, potassium 3.5, chloride 110, bicarb 26, BUN 20, creatinine 1.27, glucose of 90. Troponin I levels undetectable less than 0.015. BNP is 908 TSH is normal at 1.19. Diagnostic Findings EKG notes sinus bradycardia with a PAC and old inferior myocardial infarction pattern. Chest x-ray notes cardiomegaly. Lower extremity ultrasound is negative for DVT. Head CT shows no acute findings. PG Care Time/CCT Total # of Minutes Spent Total Time Spent with Patient: Total time spent is greater than 50% in coordination of care (as documented) at patient's floor/unit and/or counseling patient: Coding Level of Care Code 88237 Initial Inpt Care Lvl 3 Diagnoses Paroxysmal atrial fibrillation I48.0 Bilateral edema of lower extremity R60.0 Hypertension I10 SOB (shortness of breath) R06.02
--- NOTE | 2021-01-25 15:09 | Electrocardiogram Report ---
Test Reason : Blood Pressure : / mmHG Vent. Rate : 059 BPM Atrial Rate : 059 BPM P-R Int : 182 ms QRS Dur : 070 ms QT Int : 450 ms P-R-T Axes : 031 -11 003 degrees QTc Int : 445 ms Sinus bradycardia with Premature supraventricular complexes Inferior infarct , age undetermined Abnormal ECG When compared with ECG of 09-DEC-2016 14:11, Premature supraventricular complexes are now Present Inferior infarct is now Present Confirmed by Guero Orlando ([id number]) on 01/25/2021 3:08:58 PM Referred By: REFERRED SELF Confirmed By:Guero Orlando
[2021-01-25] MEDS ORDERED: ALENDRONATE SODIUM 70 MG TAB PO SCH (17:00)
[2021-01-25] MEDS: MELATONIN 3 MG TAB PO SCH (20:49)
--- NOTE | 2021-01-25 21:27 | Communication Note ---
Date of Service: January 25, 2021 Patient noted to be coughing by RN after administration of nighttime pills with water. AP Aspiration concerns Strict n.p.o. until swallow eval in a.m. Med telemetry transfer to facilitate IV beta-kerline while patient unable to take oral meds safely IV Solu-Medrol equivalent to current daily prednisone dose while strictly n.p.o. IV Heparin versus weight-based Lovenox for PE DV while patient unable to take NOAC (defer choice to AM provider).
[2021-01-25] MEDS ORDERED: ACETAMINOPHEN 1,000 MG/100 ML VIAL IV PRN (22:37)
[2021-01-25] MEDS: METOPROLOL TARTRATE 1 MG/ML VIAL IV SCH (23:50)
[2021-01-26] MEDS ORDERED: ALENDRONATE SODIUM 70 MG TAB PO SCH (06:00)
[2021-01-26] MEDS: METOPROLOL TARTRATE 1 MG/ML VIAL IV SCH (06:23)
[2021-01-26] MEDS: DOCUSATE SODIUM 100 MG CAP PO SCH ×3 (08:33→10:16)
[2021-01-26] MEDS: FLECAINIDE ACETATE 100 MG TABLET PO SCH ×2 (08:33→09:12)
[2021-01-26] MEDS: DABIGATRAN ETEXILATE 75 MG CAP PO SCH ×2 (08:33→09:09)
[2021-01-26] MEDS: LOSARTAN POTASSIUM 50 MG TAB PO SCH ×2 (08:33→09:09)
[2021-01-26] MEDS: CALCIUM CARBONATE 1250MG TAB PO SCH ×3 (08:33→10:16)
[2021-01-26] MEDS: LORATADINE 10 MG TAB PO SCH ×2 (08:33→09:10)
[2021-01-26] MEDS: PANTOprazole 40 MG TAB PO SCH ×2 (08:33→09:11)
[2021-01-26] MEDS: FINASTERIDE 5 MG TAB PO SCH ×2 (08:33→09:10)
[2021-01-26] MEDS: CHOLECALCIFEROL 1,000 UNITS 25 MCG TAB PO SCH ×2 (08:34→09:11)
[2021-01-26] MEDS: SERTRALINE HCL 50 MG TABLET PO SCH ×2 (08:34→09:10)
[2021-01-26] MEDS ORDERED: MICONAZOLE NITRATE POWDER 43 GM EXT PRN (08:57)
[2021-01-26] MEDS ORDERED: METHYLPREDNISOLONE IV SCH (09:00)
[2021-01-26] MEDS ORDERED: methylPREDNISolone 4 MG in SYRINGE 0 ML IV SCH (09:00)
--- NOTE | 2021-01-26 12:13 | Discharge Summary ---
Date of Service January 26, 2021 Admission HPI Per Admitting Provider Patient is a 75 yo male with a complicated PMHx including DANAE, dyslipidemia, GERD, HTN with CKD III, BPH with obstruction, osteoporosis, chronic lower extremity edema, Normal pressure Hydrocephalus w/ CONCERT MANAGER shunt, CLL, bullous pemphigoid, and history of recurrent DVT/PE who presented to the ED with increasing weakness. The patient lives at home with his currently, but he was anticipated to go to [facility] on Tuesday for at least 1 month for rehab because his is having a difficult time taking care of him at home. The patient speaks very little South African and did much better communicating with formal seismic interpreter. This was utilized while in the room with the patient and his . From discussion with his , Patient was previously able to get up and get into his wheelchair. Today, he was unable to get himself up and in his own wheelchair. He also was unable to understand that he should get in his wheelchair- seemed sligthly confused. Patient is a difficult historian even with seismic interpreter. He has severe SOB at night and during the day he is still SOB but not as bad as at night. He does have incontinence. Sometimes, he remembers to use the bathroom but sometimes he doesn't remember to go to the bathroom. He doesn't sleep well typically. This is chronic. Over the past year, he started to have the increased incontinence. He has chronic pain in his legs. He also has chronic edema in the legs, and he hasn't been able to walk for a long time. The patient has been taking furosemide 20 mg daily for about 1 week though he has been on and off for a long time. He had developed a wound on his leg, so the outpatient providers felt the fluid was contributing to the wound. He does follow with Cardiology outpatient- Dr. Howard. He had an Echo last month which showed EF 65%, grade I diastolic dysfunction, and moderate aortic sclerosis. Per his , the SOB this morning was increased compared to normal. No chest pain this morning, but he was upset as to why he was weak/falling. Since presentation, the patient's BP has been elevated. His labs have been unremarkable. No signs of infection. Stable electrolytes and renal function. TSH within norm. Trop undetectable. Urine negative. COVID negative. Head CT showed chronic changes with hydrocephalus and shunt but no acute abnormality. CXR showed stable cardiomegaly. No acute findings. Admission Exam Per Admitting Provider Constitutional: + obese; no acute distress Eyes: PERRL, conjunctivae normal, anicteric sclerae ENMT: external ear and nose normal, oropharynx normal Neck: trachea midline, no thyromegaly Respiratory: normal respiratory effort; no respiratory distress, does not use accessory muscles and no cough Auscultation: lungs clear to auscultation bilaterally and + diminished lung sounds (at bases) Difficult to exam well due to patient inability to sit up well Cardiovascular: Rate/Rhythm: regular rate Gastrointestinal (Abdomen): normal bowel sounds, soft, nontender, no hepatosplenomegaly Musculoskeletal: Severe edema in B/L LE Skin: + wound (RLE lateral lower leg with some clear drainage and red base) and + erythema (Mild chronic appearing erythema b/l LE) Neurologic: awake Speech / Cognition: normal speech Motor/Sensory: no tremor Psychiatric: Orientation: alert Affect: euthymic affect Principal Diagnosis weakness and physical deconditioning h/o NPH DANAE Hypertension Paroxysmal atrial fibrillation on correction anticoagulation chronic steroid use Discharge Exam CONSTITUTIONAL: WNWD, vitals stable, generally well-appearing EYES: normal conjunctivae, no scleral icterus ENT: external ear and nose normal, MMM RESPIRATORY: clear to auscultation bilaterally, no crackles, rales or wheezes, normal respiratory effort CARDIOVASCULAR: regular rate and rhythm, S1 and 2 heard without murmurs, gallops or rubs, no JVD, trace peripheral edema bilaterally (present on yesterday's exam, however, incorrectly noted as absent.) GASTROINTESTINAL: soft, nontender, nondistended, no guarding. MUSCULOSKELETAL: generalized weakness, cannot sit up in bed independently, moves extremities symmetrically, head is normocephalic and atraumatic SKIN: warm and dry NEUROLOGIC: CN 2-12 grossly intact, no sensory deficit, normal cognition, normal speech PSYCHIATRIC: alert and cooperative Discharge Data Allergies Allergy/AdvReac Type Severity Reaction Status Date / Time No Known Allergies Allergy Unverified 01/24/21 14:26 Consultations 01/24/21 15:39 ED Decision to Admit Stat 01/24/21 17:38 Consult Cardiology Routine Ordered Studies 01/24/21 13:53 CT head/brain wo con Stat 01/25/21 18:12 US venous doppler LE BI Routine Hospital Course (1) Physical deconditioning: (2) Weakness: (3) NPH (normal pressure hydrocephalus): (4) Paroxysmal atrial fibrillation: (5) Wound of right lower extremity: (6) HTN (hypertension): (7) DANAE (obstructive sleep apnea): The patient is a 75-year-old man with a history of normal pressure hydrocephalus status post CONCERT MANAGER shunt along with other comorbidities including paroxysmal atrial fibrillation and a history of VTE on chronic anticoagulation who presents with weakness. He was brought in by family members who were unable to take care of him at home. It had previously been determined he would go to a detention after the weekend, however the family was unable to make it until that point. He presented with baseline mental status and was placed on the floor. He was eating solid food without any issue but at one point while taking his pills he appeared to choke. Out of concern he was made n.p.o. and speech was consulted. He was cleared to continue with a diet as there was less concern for aspiration. Overnight he also developed some uncontrolled blood pressure, likely a result of the change in environment to the hospital, especially in light of the fact the patient is a non[place] speaker. This also may have been influenced by his conversion of oral medications to IV medication with some p.o. medications held. During his hospital stay he did undergo a lower extremity Doppler to rule out DVT which was negative for DVT in the right or left lower extremity. Head CT on admission revealed no acute intracranial abnormality and no change in the of interest colostomy catheter and severe hydrocephalus present previously. A chest x-ray also was done revealing stable cardiomegaly and low lung volumes. In light of his paroxysmal atrial fibrillation cardiology was consulted. They recommended to continue his home flecainide, metoprolol and anticoagulation with Pradaxa without interruption. They continue to follow him in the outpatient clinic. At time of discharge he was mentating and ambulating at baseline with some progression of weakness over all, and he was tolerating p.o. Blood pressure had returned to 148/79 and he was oxygenating well on room air. He was hemodynamically stable and afebrile and transferred to halfway facility in stable condition for further respite care. Total Time Total Time Spent Total Time Spent (In Minutes): 60 Total Time Includes: Examination of the Patient, Discharge Planning, Medication Reconciliation and Communication With Other Providers Discharge Plan Discharge Items Patient Disposition: Transfer Longterm Fac Discharge Diagnosis: weakness and physical deconditioning h/o NPH DANAE Hypertension Paroxysmal atrial fibrillation on correction anticoagulation chronic steroid use Condition on Discharge: Good Health Concerns: Please schedule split night sleep study in lab as recommended per [facility] Activity: Resume your previous activity Non-emergency contact: Primary Care Provider Call non-emergency contact if: you have any medication questions, your symptoms worsen, your pain is not controlled, your pain is worsening, your pain is unusual for you and your pain is concerning for you Follow-up/Referrals: Fabi Romero MD [Primary Care Provider] - Diet: Heart Healthy Diet Texture: Easy to Chew Addtl Attending Provider Instructions: Please take all medications as instructed on discharge list below. Please ensure follow-up with primary care doctor within 1 week of discharge to ensure you are still doing well after this hospitalization. Please ensure you are scheduled for a split night polysomnogram with [facility] pulmonology in the sleep lab for retesting of obstructive sleep apnea to help with daytime somnolence and fatigue. It was a pleasure taking care of you! Please call if you have any questions or problems. You can reach a [facility] hospitalist on duty at [facility] 24 hours a day by calling [phone]. Take care of yourself. Nika Dyson, DO [facility] Pending Studies at Discharge: No Stand-Alone Forms: My [facility] Skilled Items Patient informed of condition?: Yes DNR: Yes Discharge Level of Care: Skilled Communicable Disease: No Discharge Prognosis: Stable Lines: None Urinary Catheter: No Medications and DC Order Prescriptions: Continued metoprolol succinate 50 mg tablet extended release 24 hr 50 mg PO DAILY Qty: 90 RF: 3 finasteride 5 mg tablet 5 mg PO DAILY Qty: 90 RF: 1 flecainide 50 mg tablet 50 mg PO Q12H Qty: 180 RF: 3 calcium carbonate [Calcium 600] 600 mg calcium (1,500 mg) tablet 600 mg PO BID RF: 0 loratadine 10 mg tablet 10 mg PO DAILY Qty: 30 RF: 0 doxycycline hyclate 100 mg capsule 100 mg PO BID RF: 0 alendronate 70 mg tablet 70 mg PO WEEKLY RF: 0 omeprazole 20 mg tablet,delayed release (DR/EC) 40 mg PO DAILY RF: 0 prednisone 5 mg tablet 5 mg PO DAILY RF: 0 cholecalciferol (vitamin D3) 2,000 unit tablet 2,000 units PO DAILY Qty: 90 RF: 0 docusate sodium 100 mg capsule 100 mg PO DAILY RF: 0 hydroxyzine HCl 10 mg tablet 15 mg PO HS PRN (Reason: Itching) RF: 0 melatonin 5 mg capsule 5 mg PO HS RF: 0 furosemide 20 mg tablet 20 mg PO DAILY RF: 0 sertraline 50 mg tablet 50 mg PO DAILY RF: 0 Pradaxa 150 mg capsule 150 mg PO BID RF: 0 losartan 50 mg tablet 50 mg PO DAILY RF: 0 desonide 0.05 % Cream 1 applic TOPICAL BID PRN (Reason: Skin Irritation) RF: 0 hydrocortisone 1 % Cream 1 applic TOPICAL UD PRN (Reason: Itching) RF: 0 fluocinonide 0.05 % Cream 1 applic TOPICAL BID PRN (Reason: Skin Irritation) RF: 0 fluticasone propionate 50 mcg/actuation spray,suspension 2 spray INTRANASAL DAILY RF: 0 hydrocortisone acetate 25 mg Suppository 25 mg VA BID PRN (Reason: Hemorrhoids) RF: 0 Discharge Orders: Discharge Order (Routine); Ordered 01/26/21 Ordered By: Nika Dyson Admission Data Admit Date/Time: 01/24/21 16:15 Attending Provider: Nika Dyson Admit Provider: Kenji Alarcon Primary Care Provider: Fabi Romero Other Providers: [place] ; Kenji Alarcon ; Guero Orlando
[2021-01-26] MEDS ORDERED: METOPROLOL SUCC 50MG EXT REL TAB PO ONE (12:30)
== END 2021-01-26 15:10 ==
LOC: 3E 11:45 → ED 11:45 → SUATTDRO 16:15 → 3E 16:42 → 2W 01-25 22:33